=== PATIENT | male | born 1985 | race Hispanic/Latino ===

== ENCOUNTER 2019-02-06 19:20 | Inpatient (IN) | payer OTHER ==
[~2019-02-06] VITALS: Ht 188 cm; Wt 204.1 kg
--- OUTSIDE RECORDS SUMMARY | 2019-02-06 19:23 | XMS REPORT | Clinical Summary ---
Author Author [facility] Address Unknown Phone Unavailable Care Team Providers Care Research Aide Name Role Phone Asked, No Pcp PCP Unavailable Allergies No Known Allergies Medications Not on file Active Problems Not on file Social History Date Tobacco Use Types Packs/Day Years Used Never Smoker Alcohol Use Drinks/Week oz/Week Comments No Sex Assigned at Date Recorded Not on file Industry Job Start Date Occupation Not on file Not on file Not on file Travel End Travel History Travel Start No recent travel history available. Last Filed Vital Signs Not on file Plan of Treatment Not on file Results Not on fileafter 02/05/2018 Insurance Payer Benefit Subscriber ID Type Phone Address Plan / Group AETNA AETNA PPO xxxxxxxxxx PPO OPEN CHOICE (Home) [id number] Advance Directives Patient has advance care planning documents on file. For more information, keiry michael contact: Shahid Cooper [address] [place] [id number]
[2019-02-06] MEDS ORDERED: ACETAMINOPHEN 325 MG TAB PO ONE (20:15)
--- NOTE | 2019-02-06 20:19 | NUR ---
PT MEDICATED FOR FEVER PER MD ORDERS/PROTOCOL, TOLERATED WELL
[2019-02-06 20:23] LABS: BASOPHILS % 0.2 % (0.0-1.0); EOSINOPHILS # (AUTO) 0.1 (0.0-0.4); EOSINOPHILS % 0.4 % (0.0-6.0); HEMATOCRIT 40.8 % (38.2-49.6); LYMPHOCYTES # (AUTO) 1.7 (1.0-3.2); LYMPHOCYTES % 10.4 % (18.0-39.1); MEAN CORPUSCULAR HEMOGLOBIN 30.9 pg (28-32); MEAN CORPUSCULAR HGB CONC 34.3 g/dL (31-35); MEAN CORPUSCULAR VOLUME 90.1 fL (81-99); MONOCYTES % 6.2 % (4.4-11.3); NEUTROPHILS # (AUTO) 13.8 (2.1-6.9); NEUTROPHILS % 82.4 % (38.7-80.0); PLATELET COUNT 212 x10e3/uL (140-360); RED BLOOD COUNT 4.53 x10e6/uL (4.3-5.7); RED CELL DISTRIBUTION WIDTH 12.5 % (11.7-14.4)
[2019-02-06] MEDS: PIPER-TAZ 3.375 GM 50 ML IV SCH ×2 (20:36→22:00)
[2019-02-06 20:37] LABS: ALANINE AMINOTRANSFERASE 45 IU/L (0-55); ALBUMIN 3.3 g/dL (3.5-5.0); ALBUMIN/GLOBULIN RATIO 0.9 (0.8-2.0); ALKALINE PHOSPHATASE 71 IU/L (40-150); ANION GAP 9.9 mmol/L (8-16); BLOOD UREA NITROGEN 13 mg/dL (7-26); BUN/CREATININE RATIO 16 (6-25); CALCIUM 8.9 mg/dL (8.4-10.2); CARBON DIOXIDE 25 mmol/L (22-29); CHLORIDE 103 mmol/L (98-107); CREATININE, SERUM 0.83 mg/dL (0.72-1.25); EST GLOMERULAR FILTRATION RATE > 60 ML/MIN (60-); GLUCOSE 107 mg/dL (74-118); SODIUM 135 mmol/L (136-145)
[2019-02-06 20:38] LABS: POTASSIUM 2.9 mmol/L (3.5-5.1)
[2019-02-06] MEDS: VANCOMYCIN 1GM/NS 250 ML 250 ML IV SCH (20:38)
[2019-02-06] MEDS ORDERED: KCL 20MEQ/.9 SOD CHL 1,000 ML IV ONE (20:45)
[2019-02-06] MEDS ORDERED: POTASSIUM CHLORIDE 20 MEQ TAB CR PO NR (20:45)
[2019-02-06] MEDS ORDERED: ONDANSETRON HCL INJ 2MG/ML 2ML 2 MG/ML VIAL IV PRN (22:00)
[2019-02-06] MEDS ORDERED: SODIUM CHLORIDE FLUSH 10 ML SYR INJ PRN (22:00)
[2019-02-06] MEDS ORDERED: HYDROMORPHONE 1MG/1ML INJ IV PRN (22:00)
--- OUTSIDE RECORDS SUMMARY | 2019-02-06 22:03 | XMS REPORT | Clinical Summary ---
Author Author [facility] Address Unknown Phone Unavailable Care Team Providers Care Supervisor Type Bar And Segment Name Role Phone Asked, No Pcp PCP [...] AETNA PPO xxxxxxxxxx PPO OPEN CHOICE (Home) [place] [address] Advance Directives Patient has advance care planning documents on file. For more information, keiry michael contact: Shahid Cooper [address] [place] [id number]
--- NOTE | 2019-02-06 22:52 | NUR ---
CONSULT TO DR JULIETA FIELDS.
[2019-02-06] MEDS ORDERED: INFLUENZA VIRUS VAC SPLIT INJ 0.5 ML SYR IM SCH (22:55)
[2019-02-06 22:59] VITALS: BP 176/93
--- NOTE | 2019-02-06 22:59 | NUR ---
ADMISSION HX,FAMILY HX,AND ASSESSMENT DONE.PT REPORTS THAT HE DOES NOT TAKE ANY HOME MEDICATIONS.
--- NOTE | 2019-02-06 23:22 | NUR ---
PAGED AND NOTIFIED DR HARLEY ABOUT PT'S ELEVATED BLOOD PRESSURE.N/O RECEIVED AND ENTERED.
[2019-02-06] MEDS: CLONIDINE HCL 0.1 MG TAB PO PRN (23:46)
[2019-02-07] VITALS (9 sets, daily range): BP systolic 147–176; BP diastolic 73–93
[2019-02-07 05:11] LABS: BASOPHILS % 0.2 % (0.0-1.0); EOSINOPHILS # (AUTO) 0.1 (0.0-0.4); EOSINOPHILS % 0.6 % (0.0-6.0); HEMATOCRIT 37.3 % (38.2-49.6); HEMOGLOBIN 12.7 g/dL (14.0-18.0); LYMPHOCYTES # (AUTO) 1.7 (1.0-3.2); LYMPHOCYTES % 13.5 % (18.0-39.1); MEAN CORPUSCULAR HEMOGLOBIN 31.1 pg (28-32); MEAN CORPUSCULAR VOLUME 91.2 fL (81-99); MONOCYTES # (AUTO) 0.9 (0.2-0.8); MONOCYTES % 7.3 % (4.4-11.3); NEUTROPHILS # (AUTO) 9.5 (2.1-6.9); PLATELET COUNT 171 x10e3/uL (140-360); RED BLOOD COUNT 4.09 x10e6/uL (4.3-5.7); RED CELL DISTRIBUTION WIDTH 12.6 % (11.7-14.4)
[2019-02-07] MEDS: PIPER-TAZ 3.375 GM 50 ML IV SCH ×2 (05:15→12:44)
[2019-02-07 05:31] LABS: ALANINE AMINOTRANSFERASE 35 IU/L (0-55); ALBUMIN 2.8 g/dL (3.5-5.0); ALBUMIN/GLOBULIN RATIO 0.8 (0.8-2.0); ALKALINE PHOSPHATASE 60 IU/L (40-150); ANION GAP 9.3 mmol/L (8-16); BLOOD UREA NITROGEN 11 mg/dL (7-26); BUN/CREATININE RATIO 14 (6-25); CALCIUM 8.4 mg/dL (8.4-10.2); CARBON DIOXIDE 23 mmol/L (22-29); CHLORIDE 109 mmol/L (98-107); CREATININE, SERUM 0.78 mg/dL (0.72-1.25); EST GLOMERULAR FILTRATION RATE > 60 ML/MIN (60-); GLUCOSE 112 mg/dL (74-118); POTASSIUM 3.3 mmol/L (3.5-5.1); SODIUM 138 mmol/L (136-145)
--- NOTE | 2019-02-07 07:12 | NUR ---
REPORT GIVEN TO ONCOMING NURSE.WALKING ROUNDS MADE.PT RESTING IN BED WITH NO S/S OF DISTRESS.
[2019-02-07] MEDS ORDERED: SODIUM CHLORIDE 0.9% 250ML 250 ML ONE ×2 (07:19→20:53)
[2019-02-07] MEDS: VANCOMYCIN 1GM/NS 250 ML 250 ML IV SCH (07:54)
[2019-02-07] MEDS: ACETAMINOPHEN 325 MG TAB PO PRN ×3 (07:54→20:49)
[2019-02-07] MEDS ORDERED: POTASSIUM CHLORIDE 20 MEQ TAB CR PO ONE (08:15)
[2019-02-07] MEDS ORDERED: INFLUENZA VIRUS VAC SPLIT INJ 0.5 ML SYR IM SCH (08:15)
--- NOTE | 2019-02-07 17:24 | NUR ---
Nutrition Screen Note RD Recommendation for Physician: -Continue cardiac diet as ordered Plan of Care: RD following, monitoring for tolerance and adequacy Nutrition reason for involvement: Nutrition Risk Trigger MST Primary Diagnose(s): LLE cellulitis PMH: no H&P in chart Ht: 74in Wt: 450lb BMI: 57.8kg/m2 IBW: 190lb RD Assessment: (02/07) Chart reviewed. Labs and meds reviewed. 33yo obese M, who was admitted for LLE cellulitis. Pt was sleeping during my visit. Per RN, pt was eating very well with 100% meal intake. No GI complains noted. Will continue to monitor and follow. Current Diet: Cardiac diet Malnutrition Evaluation (02/07) Unable to evaluate, pt was sleeping. Diet Education Needs Assessment: Diet education not indicated. Nutrition Care Level: low Signed: Alyssa Ford, MS, RD, LD
[2019-02-07] MEDS ORDERED: VANCOMYCIN HCL 2 GM in SODIUM CHLORIDE 0.9% 500ML 400 ML IV SCH (18:45)
--- NOTE | 2019-02-07 18:55 | NUR ---
Resting in bed, side rails upx2, call light within reach. AAOX4 to time, person, place, situation. Respirations even and unlabored. Report to be given to oncoming nurse.
[2019-02-07] MEDS: VANCOMYCIN HCL 2 GM in SODIUM CHLORIDE 0.9% 500ML 400 ML IV SCH (20:49)
[2019-02-07] MEDS: CLINDAMYCIN 600MG / 50ML 50 ML IV SCH (21:36)
[2019-02-08] VITALS: BP 171/77
[2019-02-08] MEDS: CLONIDINE HCL 0.1 MG TAB PO PRN ×2 (00:49→18:01)
[2019-02-08] MEDS: ACETAMINOPHEN 325 MG TAB PO PRN ×2 (00:50→21:30)
--- NOTE | 2019-02-08 01:45 | Consultation ---
DATE OF CONSULTATION: REASON FOR CONSULTATION: Cellulitis of the left leg. HISTORY OF PRESENT ILLNESS: This patient who is a 33-year-old male, history of morbid obesity. The patient with history of cellulitis before, comes in with redness and swelling of his left leg. No specific trauma. The patient has since had this for the last 2 days. The patient was admitted and is on vancomycin and Zosyn. I was asked to see him. He is currently lying in bed comfortably. PAST MEDICAL HISTORY: Obesity. He also has cellulitis of the leg. PAST SURGICAL HISTORY: Denies. ALLERGIES: NKA. SOCIAL HISTORY: Does not smoke. No drug abuse or alcohol abuse. FAMILY HISTORY: Otherwise, unremarkable. REVIEW OF SYSTEMS: HEENT: There is no headache, visual changes, or hearing changes. GI: There is no nausea, no vomiting, no diarrhea. His review of systems is otherwise unremarkable. PHYSICAL EXAMINATION: GENERAL: He is alert and oriented, does not seem in acute distress. Morbidly obese. HEENT: Normocephalic. Not icteric. NECK: Supple. CHEST: Clear bilateral. HEART: S1, S2. No S3, S4, or murmurs. ABDOMEN: Soft. No tenderness. No hepatosplenomegaly. EXTREMITIES: Leg, there is erythema, there is edema noted from the foot all the way to above the knee. IMPRESSION: 1. Cellulitis. 2. This patient is morbidly obese. PLAN: I will suggest to discontinue Zosyn and discontinue vancomycin for now. Adjust his dose to vancomycin 2 g q.12 hours. Check trough with the third dose. We will follow up clinically. We will add clindamycin also for time being. We will follow with you. Thank you for asking me to see this patient. MD AAYUSH Graff/SUKHI /[id number]
[2019-02-08] MEDS: CLINDAMYCIN 600MG / 50ML 50 ML IV SCH ×3 (02:59→15:00)
[2019-02-08 04:00] VITALS: BP 139/75
[2019-02-08 05:41] LABS: HEMATOCRIT 36.4 % (38.2-49.6); HEMOGLOBIN 12.1 g/dL (14.0-18.0); MEAN CORPUSCULAR HEMOGLOBIN 30.4 pg (28-32); MEAN CORPUSCULAR HGB CONC 33.2 g/dL (31-35); MEAN CORPUSCULAR VOLUME 91.5 fL (81-99); PLATELET COUNT 173 x10e3/uL (140-360); RED BLOOD COUNT 3.98 x10e6/uL (4.3-5.7); RED CELL DISTRIBUTION WIDTH 12.5 % (11.7-14.4)
[2019-02-08 05:57] LABS: ANION GAP 9.3 mmol/L (8-16); BLOOD UREA NITROGEN 7 mg/dL (7-26); BUN/CREATININE RATIO 10 (6-25); CALCIUM 8.4 mg/dL (8.4-10.2); CARBON DIOXIDE 23 mmol/L (22-29); CHLORIDE 109 mmol/L (98-107); CREATININE, SERUM 0.73 mg/dL (0.72-1.25); EST GLOMERULAR FILTRATION RATE > 60 ML/MIN (60-); GLUCOSE 102 mg/dL (74-118); POTASSIUM 3.3 mmol/L (3.5-5.1); SODIUM 138 mmol/L (136-145)
--- NOTE | 2019-02-08 07:15 | NUR ---
pt alert resp even and unlabored at this time no distress noted, pt has no c/o pain when asked, pt able to make needs known pt has call light in reach, will cont to monitor
[2019-02-08 07:44] LABS: EOSINOPHILS % (MANUAL) 2 % (0-7); LYMPHOCYTES % (MANUAL) 33 % (19-48); MONOCYTES % (MANUAL) 4 % (3.4-9.0); NEUTROPHILS % (MANUAL) 61 % (40-74); PLATELET ESTIMATE ADEQUATE; PLATELET MORPHOLOGY COMMENT NORMAL; RBC MORPHOLOGY COMMENT NORMAL
[2019-02-08] MEDS: VANCOMYCIN HCL 2 GM in SODIUM CHLORIDE 0.9% 500ML 400 ML IV SCH ×2 (08:00→20:27)
[2019-02-08 08:17] VITALS: BP 163/90
[2019-02-08 11:47] VITALS: BP 156/80
[2019-02-08] MEDS ORDERED: TRAMADOL HCL 50 MG TAB PO PRN (13:45)
[2019-02-08] MEDS ORDERED: FUROSEMIDE 40 MG TAB PO ONE (14:00)
[2019-02-08] MEDS ORDERED: POTASSIUM CHLORIDE 20 MEQ TAB CR PO ONE (14:30)
[2019-02-08 16:19] VITALS: BP 176/91
--- NOTE | 2019-02-08 19:12 | NUR ---
report given to oncoming nurse, for cont. care.
[2019-02-08 20:00] VITALS: BP 160/91
[2019-02-08] MEDS: HYDROMORPHONE 2MG/ML 2 MG/ML ML IV PRN (21:17)
[2019-02-09] VITALS: BP 160/91
[2019-02-09] MEDS: CLINDAMYCIN 600MG / 50ML 50 ML IV SCH ×5 (00:28→20:56)
[2019-02-09 04:00] VITALS: BP 132/75
--- NOTE | 2019-02-09 07:16 | NUR ---
pt asleep resp even and unlabored at this time no distress noted, pt arousal to name, pt wearing bipap, call light in reach
[2019-02-09] MEDS: VANCOMYCIN HCL 2 GM in SODIUM CHLORIDE 0.9% 500ML 400 ML IV SCH ×2 (08:00→22:30)
[2019-02-09 08:02] VITALS: BP 147/68
[2019-02-09 11:46] VITALS: BP 173/97
[2019-02-09] MEDS: HYDROMORPHONE 2MG/ML 2 MG/ML ML IV PRN (12:06)
[2019-02-09 16:01] VITALS: BP 179/91
--- NOTE | 2019-02-09 19:18 | NUR ---
report given to oncoming nurse, for continued care.
--- NOTE | 2019-02-09 19:28 | Progress Note ---
DATE: SUBJECTIVE: Mr. Barcenas is doing better. There is no new complaint. The leg is slowly better. REVIEW OF SYSTEMS: HEENT: Negative. PULMONARY: Negative. CARDIAC: Negative. : Negative. SKIN: There is no rash. LABORATORY DATA: Reviewed. White count is 9.58, hemoglobin 12. Sodium 138, potassium 3.3, creatinine 0.73. PHYSICAL EXAMINATION: GENERAL: He is currently alert, oriented, does not seem to be in acute distress. Obese. VITAL SIGNS: Stable. Afebrile. HEENT: Not icteric. NECK: Supple. CHEST: Clear. HEART: S1, S2. No murmur. ABDOMEN: Soft, obese. No tenderness. No hepatosplenomegaly. EXTREMITIES: Legs, erythema seems to be subsided, still about the same from the toes all the way to the knee. IMPRESSION: Cellulitis. The patient is morbidly obese. The patient is doing better with cultures, IV antibiotic. If he continued to improve, probably we can discharge him home tomorrow. We will reassess on daily basis. MD AAYUSH Graff/SUKHI /[id number]
[2019-02-09 20:00] VITALS: BP 178/99
[2019-02-10] VITALS (9 sets, daily range): BP systolic 124–190; BP diastolic 69–100
[2019-02-10] MEDS: CLINDAMYCIN 600MG / 50ML 50 ML IV SCH ×4 (03:27→22:00)
--- NOTE | 2019-02-10 07:05 | NUR ---
RCD PT AT BED PT IS ALERT AND ORIENTED PT RESTING ON BED IV PATENT BED LOW AND LOCKED CALL LIGHT IN REACH
[2019-02-10] MEDS: VANCOMYCIN HCL 2 GM in SODIUM CHLORIDE 0.9% 500ML 400 ML IV SCH (08:00)
--- NOTE | 2019-02-10 09:39 | Progress Note ---
DATE: 02/10/2019 SUBJECTIVE: Mr. Barcenas is a 33-year-old male with a history of hypertension, sleep apnea, morbid obesity, came to the emergency room with fever, chills, left lower extremity edema and erythema. He was found to have cellulitis. White count was very elevated. He was admitted, started on IV antibiotics. Infectious Disease is following the patient with me. PHYSICAL EXAMINATION: GENERAL: Today, he is awake and alert, feeling a little better. VITAL SIGNS: Temperature is 98.9, blood pressure 164/100. HEART: Regular rate. LUNGS: Clear to auscultation. ABDOMEN: Soft. EXTREMITIES: Left lower extremity still has edema and erythema, but it looks better than before. LABORATORY WORK: On the blood work, potassium is 3.3, creatinine is 0.72, glucose 102. White count 9.58, hemoglobin 12.1, hematocrit 36.4. ASSESSMENT: 1. Left lower extremity cellulitis. 2. Leukocytosis, improving. 3. Morbid obesity. 4. Uncontrolled hypertension. 5. Sleep apnea. 6. Hypokalemia. PLAN: At present time is to continue IV antibiotics. White count is back to normal. He has been afebrile. If stable, he may be able to go home tomorrow on p.o. antibiotics. All this was discussed with the patient. All questions were answered to satisfaction. MD JEFFERY Patricia/SUKHI /[id number]
--- NOTE | 2019-02-10 10:35 | Progress Note ---
DATE: SUBJECTIVE: Mr. Barcenas is doing better. No new complaints. The left leg is better and there is still erythema and edema. PHYSICAL EXAMINATION: GENERAL: He is currently alert and oriented, does not seem in acute distress. VITAL SIGNS: Stable, currently afebrile. HEENT: He is not icteric. NECK: Supple. CHEST: Clear. HEART: S1, S2. No S3, S4, or murmur. ABDOMEN: Soft, obese. The left leg, there is erythema and edema, but have subsided. REVIEW OF SYSTEMS: HEENT: Negative. PULMONARY: Negative. CARDIAC: Negative. : Negative. SKIN: There is no other rash. JOINTS: Negative. LABORATORY DATA: Reviewed. IMPRESSION: Cellulitis of the left leg in a patient who is morbidly obese, slowly better on clindamycin and vancomycin. Continue with the same. Check vancomycin trough. Recheck CBC. We will follow. MD AAYUSH Graff/SUKHI /[id number]
--- NOTE | 2019-02-10 12:00 | NUR ---
PAGED TO DR HARLEY TO NOTIFY THE BP
[2019-02-10] MEDS: CLONIDINE HCL 0.1 MG TAB PO PRN ×2 (13:10→21:21)
--- NOTE | 2019-02-10 14:31 | NUR ---
CASE MANAGEMENT ASSESSMENT Pouncer to bedside to discuss plan of care with patient/family. CM/SW role and care transitions discussed. Anticipated discharge plan discussed along with duration of care. CM/SW discussed patients right to make decisions in care. CM/SW work hours given. Patient lives: with some roommates Admit/Transfer: thru ED Hospital/ER visits since last admit: stated was hospitalized at [facility] last year for same POA/Emergency contact: nelida Barcenas [phone] Current/Previous Home Health: none PCP/Follow-up Care: Dr. Cuco Chavez; CM advised pt to follow up with his MD within 5 days of discharge. Pt verbalized understanding and will set up an appointment Current/Previous DME: [employer] Medications (referring to index hospitalization or the first time you were in the hospital) a. Were changes made in your medications when you were in the hospital on [date of index hospitalization]? b. Did you understand the changes? c. Were you able to obtain your new medications right away? d. Were you able to take your medications like the doctor wanted you to? e. Did the hospital give you an accurate, easy to understand list of medications when you left? Scale of 1-10 how comfortable does patient feel with disease management in outpatient settin Other Services: none Employment Status: employed at [employer] Areas of Concerns: cellulitis Referral Needs: none Education Needs: cellulitis, medical management IMM/RODAS given and signed (if applicable): n/a Goal for discharge: home with no needs; possibly tomorrow CM/SW left business card at the bedside with contact information. Name and number was also written on the patients whiteboard. Patient verbalized understanding of discussion. CM will follow-up with ongoing discharge and transition of care needs.
--- NOTE | 2019-02-10 18:40 | NUR ---
PT RESTING ON BED BED SIDE REPORT GIVEN TO ONCOMING NURSE
[2019-02-10] MEDS: VANCOMYCIN HCL 2 GM in SODIUM CHLORIDE 0.9% 500ML 500 ML IV SCH (20:05)
[2019-02-11 00:40] VITALS: BP 162/100
[2019-02-11] MEDS: CLINDAMYCIN 600MG / 50ML 50 ML IV SCH ×3 (03:43→15:00)
[2019-02-11] MEDS ORDERED: SODIUM CHLORIDE 0.9% 250ML 250 ML ONE (04:40)
[2019-02-11 04:48] VITALS: BP 162/92
[2019-02-11] MEDS: CLONIDINE HCL 0.1 MG TAB PO PRN (05:38)
--- NOTE | 2019-02-11 07:02 | NUR ---
REPORT GIVEN TO ONCOMING NURSE.WALKING ROUNDS MADE.PT RESTING IN BED WITH NO S/S OF DISTRESS.
[2019-02-11 07:50] VITALS: BP 162/92
[2019-02-11] MEDS: VANCOMYCIN HCL 2 GM in SODIUM CHLORIDE 0.9% 500ML 500 ML IV SCH (08:00)
[2019-02-11 08:38] VITALS: BP 150/91
[2019-02-11] MEDS ORDERED: HYDROCHLOROTHIAZIDE 25 MG TAB PO SCH (09:00)
[2019-02-11] MEDS ORDERED: LOSARTAN POTASSIUM 25 MG TAB PO SCH (09:00)
[2019-02-11 11:57] VITALS: BP 153/82
--- NOTE | 2019-02-11 13:07 | NUR ---
A/C TO DR RENDON PT CAN GO HOME SO PAGED DR HARLEY TO GET DISCHARGE ORDER
[2019-02-11] MEDS ORDERED: LOSARTAN HCT PO (13:19)
[2019-02-11] MEDS ORDERED: DOXYCYCLINE HY100 MG PO (13:20)
--- NOTE | 2019-02-11 14:38 | NUR ---
AGAIN PAGED DR HARLEY TO GET DISCHARGE ORDER
--- NOTE | 2019-02-11 16:18 | NUR ---
PT WENT HOME IN SAFE CONDITION WITH HIS BROTHER
[2019-02-11 16:47] VITALS: BP 158/83
--- NOTE | 2019-02-12 06:00 | Discharge Summary ---
HISTORY OF PRESENT ILLNESS: Mr. Barcenas is a 33-year-old man with history of hypertension, sleep apnea, and morbid obesity, came to the emergency room complaining of chills, fever, left lower extremity edema and erythema. He was found to have cellulitis. He was started on IV antibiotics. PHYSICAL EXAMINATION: GENERAL: Today, he is awake and alert. Feeling better. VITAL SIGNS: Temperature 97.5, blood pressure 162/92. HEART: Regular rate. LUNGS: Clear to auscultation. ABDOMEN: Soft. EXTREMITIES: The left lower extremity still with some skin color chronic, still a little erythema. LAB WORK: White count is 9.58, hemoglobin 12.1, and hematocrit 36.4. Potassium 3.3, creatinine is 0.72, and glucose is 102. DISCHARGE DIAGNOSES: 1. Left lower extremity cellulitis. 2. Leukocytosis, resolved. 3. Morbid obesity. 4. Uncontrolled hypertension. 5. Sleep apnea. 6. Hypokalemia. PLAN: At the present time is to start the patient on losartan-HCTZ 50-12.5, to continue. If we can switch him to p.o. antibiotics, he will be able to be to go home today and follow up with me as an outpatient. All this was discussed with the patient. All questions were answered to satisfaction. We will discuss with Infectious Disease about switching him to p.o. antibiotics. MD JEFFERY Patricia/SUKHI /[id number]
== END 2019-02-11 16:18 | disposition home or self-care (01) | DRG 872 ==
LOC: ER 19:20 → ERHOLD 22:01 → MED/SURG2 22:35
PROVIDERS: ADMIT Internal Medicine; ATTEND Internal Medicine
DX: A41.9 Sepsis, unspecified organism (principal); L03.116 Cellulitis of left lower limb; Z68.43 Body mass index [BMI] 50.0-59.9, adult; G47.30 Sleep apnea, unspecified; E87.6 Hypokalemia
CPT/HCPCS: 36415; 80048; 80053; 80202; 85007; 85025; 85027; 87040; 93971; 99284; J2543; J3370; J7040; J7050

== ENCOUNTER 2020-02-12 16:01 | Inpatient (IN) | payer BC, OTHER ==
[~2020-02-12] VITALS: Ht 188 cm; Wt 213.8 kg
[~2020-02-12 16:01] MED LIST: DOXYCYCLINE HY100 MG PO; LOSARTAN HCT PO
--- OUTSIDE RECORDS SUMMARY | 2020-02-12 16:05 | XMS REPORT ---
Author Author [facility] Address Unknown Phone Unavailable Care Team Providers Care Dialysis Biomed Technician Name Role Phone Unavailable Unavailable Problems This patient has no known problems. Allergies, Adverse Reactions, Alerts This patient has no known allergies or adverse reactions. Medications This patient has no known medications. Encounters Start Date/Time End Date/Time Encounter Type Admission Type Attending Clinicians Care Facility Care Department Encounter ID 2019-07-26 01:25:00 2019-07-26 01:25:00 Emergency E [facility] [id number] 2019-04-24 11:44:00 2019-04-24 11:44:00 Emergency E [facility] [id number]
--- OUTSIDE RECORDS SUMMARY | 2020-02-12 16:05 | XMS REPORT | Summary of Care ---
Author Author GEORGIA STANLEY M.D. Organization Unknown Address [facility] Phone Unavailable Care Team Providers Care Diesel Powerplant Mechanic Helper Name Role Phone GEORGIA STANLEY M.D. 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.6, L03.119) Status: Active Hypertension (401.9, I10) Status: Active Obesity, morbid (278.01, E66.01) Status: Active Medications Name Dates Details Medications not documented Allergies and Adverse Reactions Name Dates Details Allergy history not documented Status: Procedures Procedure Dates Details History of No history of surgery Completed Immunization Name Dates Details Immunizations not documented Social History Name Dates Details Unknown if ever smoked Vital Signs Date Test Result Details [id number] BP Systolic 148 mm[Hg] Status: Comments: Location: RUE; Position: Sitting BP Diastolic 99 mm[Hg] Status: Comments: Location: E; Position: Sitting Height 74 in Status: O2 SAT 100 % Status: Comments: Source: RA Heart Rate 78 /min Status: Respiration Rate 18 /min Status: 87-[id number]:48 BP Systolic 184 mm[Hg] Status: BP Diastolic 124 mm[Hg] Status: Height 74 in Status: Heart Rate 82 /min Status: Weight 450 lb Status: Body Mass Index Calculated 57.78 kg/m2 Status: Body Surface Area Calculated 3.07 m2 Status: Results Date Description Value Details [id number] [QLH] CBC (INCLUDES DIFF/PLT) WBC 5.8 {K/CMM} Range: 3.7-10.4 RBC 4.63 {M/CMM} (Below low threshold) Range: 4.70-6.10 Hgb 14.5 g/dl Range: 14.0-18.0 Hct 41.9 % (Below low threshold) Range: 42.0-54.0 MCV 90.5 fL Range: 80.0-94.0 MCH 31.3 pg (Above high threshold) Range: 27.0-31.0 MCHC 34.6 g/dl Range: 32.0-36.0 RDW 13.1 % Range: 11.5-14.5 Platelet 287 {K/CMM} Range: 133-450 Mean Platelet Volume 9.3 fL Range: 7.4-10.4 :37 [[facility]] Differential Segmented Neutrophils 56.2 % Range: 45.0-75.0 Monocytes 6.2 % Range: 2.0-12.0 Lymphocytes 35.4 % Range: 20.0-40.0 Eosinophils 1.7 % Range: 0.0-4.0 Basophils 0.5 % Range: 0.0-1.0 Segs-Bands # 3.3 {K/CMM} Range: 1.5-8.1 Lymphocytes # 2.1 {K/CMM} Range: 1.0-5.5 Monocytes # 0.4 {K/CMM} Range: 0.0-0.8 Eosinophils # 0.1 {K/CMM} Range: 0.0-0.5 :37 [QL] CMP W/EGFR Sodium Level 143 {mEq/l} Range: 135-145 Potassium Level 3.8 {mEq/l} Range: 3.5-5.1 Chloride Level 109 {mEq/l} Range: 95-109 Carbon Dioxide 26 {mEq/l} Range: 24-32 AGAP 11.8 {mEq/l} Range: 10.0-20.0 Glucose Lvl 111 mg/dl (Above high threshold) Range: 70-99 Comments: Adult reference range values reflect the clinical guidelinesof the [place] Diabetes Association. Creatinine Lvl 0.80 mg/dl Range: 0.50-1.40 Blood Urea Nitrogen 9 mg/dl Range: 7-22 BUN/Creatinine Ratio 11 Range: 6-25 Total Protein 7.3 g/dl Range: 6.4-8.4 Albumin Lvl 3.6 g/dl Range: 3.5-5.0 Globulin 3.7 g/dl Range: 2.7-4.2 A/G Ratio 1.0 Range: 0.7-1.6 Calcium Level Total 9.1 mg/dl Range: 8.5-10.5 ALT 66 u/l (Above high threshold) Range: 0-65 AST 32 u/l Range: 0-37 Alk Phos 93 u/l Range: 39-136 Bili Total 0.7 mg/dl Range: 0.2-1.3 eGFR 119 {ML/MIN/1.7} Comments: The eGFR is calculated using the CKD-EPI formula. In most young, healthyindividuals the eGFR will be >90 mL/min/1.73m2. The eGFR declines with age. AneGFR of 60-89 may be normal in some populations, particularly the elderly, forwhom the CKD-EPI formula has not been extensively validated. Use of the eGFR isnot recommended in the following populations:Individuals with unstable creatinine concentrations, including patients and those with serious co-morbid conditions.Patients with extremes in muscle mass or diet.The data above are obtained from the National Kidney Disease Education Program(NKDEP) which additionally recommends that when the eGFR is used in patientswith extremes of body mass index for purposes of drug dosing, the eGFR shouldbe multiplied by the estimated BMI. Plan of Care Name Dates Details Planned Observations Planned Goals not documented Interventions Provided Plan* - No need for further therapy with systemic antibiotics. * - To reduce the risk of recurence, it was recommended that the patient start anti fungal cream on his left foot. * - FUP as needed. Instructions Name Dates Details Instructions not documented Encounters Appointment; GEORGIA STANLEY M.D. Encounter Diagnosis: Problem not documented On: 29-Apr-2019 9:00 Appointment; GEORGIA STANLEY M.D. Encounter Diagnosis: Problem not documented On: 06-May-2019 10:00
[2020-02-12] MEDS ORDERED: SODIUM CHLORIDE 0.9% 1000ML 1,000 ML IV STA (16:22)
[2020-02-12] MEDS ORDERED: PIPER-TAZ 3.375 GM 50 ML IV ONE (16:30)
[2020-02-12 16:58] LABS: BASOPHILS % 0.1 % (0.0-1.0); EOSINOPHILS % 0.2 % (0.0-6.0); HEMATOCRIT 43.3 % (38.2-49.6); HEMOGLOBIN 15.1 g/dL (14.0-18.0); LYMPHOCYTES % 13.6 % (18.0-39.1); MEAN CORPUSCULAR HEMOGLOBIN 31.1 pg (28-32); MEAN CORPUSCULAR HGB CONC 34.9 g/dL (31-35); MEAN CORPUSCULAR VOLUME 89.1 fL (81-99); MONOCYTES # (AUTO) 0.7 (0.2-0.8); MONOCYTES % 4.5 % (4.4-11.3); NEUTROPHILS # (AUTO) 12.1 (2.1-6.9); NEUTROPHILS % 81.2 % (38.7-80.0); PLATELET COUNT 276 x10e3/uL (140-360); RED BLOOD COUNT 4.86 x10e6/uL (4.3-5.7); RED CELL DISTRIBUTION WIDTH 12.1 % (11.7-14.4)
[2020-02-12 17:09] LABS: INR 1.02; PARTIAL THROMBOPLASTIN TIME 34.1 seconds (23.8-35.5)
[2020-02-12 17:10] LABS: CLARITY,URINE CLEAR (CLEAR); COLOR,URINE YELLOW (YELLOW); KETONES,URINE TRACE (NEGATIVE); LEUKOCYTE ESTERASE ,URINE NEGATIVE (NEGATIVE); NITRITE,URINE NEGATIVE (NEGATIVE); PROTEIN,URINE DIPSTICK 1+ (NEGATIVE)
[2020-02-12 17:11] LABS: BILIRUBIN,URINE NEGATIVE (NEGATIVE); URINE UROBILINOGEN 0.2 mg/dL (0.2 - 1)
[2020-02-12] MEDS ORDERED: VANCOMYCIN 1GM/NS 250 ML 250 ML IV ONE (17:15)
[2020-02-12 17:16] LABS: ALANINE AMINOTRANSFERASE 70 IU/L (0-55); ALBUMIN 3.7 g/dL (3.5-5.0); ALBUMIN/GLOBULIN RATIO 1.2 (0.8-2.0); ALKALINE PHOSPHATASE 95 IU/L (40-150); ANION GAP 11.2 mmol/L (8-16); BLOOD UREA NITROGEN 11 mg/dL (7-26); BUN/CREATININE RATIO 11 (6-25); CALCIUM 8.8 mg/dL (8.4-10.2); CARBON DIOXIDE 25 mmol/L (22-29); CHLORIDE 108 mmol/L (98-107); CREATINE KINASE 152 IU/L (30-200); CREATININE, SERUM 1.01 mg/dL (0.72-1.25); EST GLOMERULAR FILTRATION RATE > 60 ML/MIN (60-); GLUCOSE 133 mg/dL (74-118); POTASSIUM 3.2 mmol/L (3.5-5.1); SODIUM 141 mmol/L (136-145)
[2020-02-12 17:21] LABS: BACTERIA,URINE RARE /HPF; EPITHELIAL CELLS,URINE FEW /LPF; RBC,URINE 0-5 /HPF (0-5)
[2020-02-12] MEDS ORDERED: POTASSIUM CHLORIDE 20 MEQ TAB CR PO STA (17:26)
[2020-02-12] MEDS ORDERED: ONDANSETRON HCL INJ 2MG/ML 2ML 2 MG/ML VIAL IV STA (17:26)
[2020-02-12] MEDS ORDERED: HYDROCODONE/APAP 10MG-325MG TAB PO ONE (17:30)
[2020-02-12] MEDS ORDERED: CLONIDINE HCL 0.1 MG TAB PO ONE (17:30)
[2020-02-12] MEDS ORDERED: KCL 20MEQ/.9 SOD CHL 1,000 ML IV ONE (18:30)
[2020-02-12] MEDS ORDERED: CLONIDINE HCL 0.1 MG TAB PO PRN (18:30)
[2020-02-12] MEDS ORDERED: ONDANSETRON HCL INJ 2MG/ML 2ML 2 MG/ML VIAL IV PRN (18:30)
--- NOTE | 2020-02-12 19:09 | Diagnostic Imaging Report ---
EXAMINATION: CHEST SINGLE (PORTABLE) INDICATION: ^OBESE, SOB ^[id number] ^[id number]. COMPARISON: None FINDINGS: AP view TUBES and LINES: None. LUNGS: Lungs are not well inflated. Left basilar opacities likely atelectasis and or pleural effusion. PLEURA: No pleural effusion or pneumothorax. HEART AND MEDIASTINUM: Cardiac size is mildly enlarged. BONES AND SOFT TISSUES: No acute osseous lesion. Soft tissues are unremarkable. UPPER ABDOMEN: No free air under the diaphragm. IMPRESSION: Left basilar opacities likely atelectasis and or pleural effusion. Signed by: Jerrod Wright MD on 02/12/2020 7:05 PM
[2020-02-12] MEDS ORDERED: METOPROLOL TARTRATE INJ 1 MG/ML VIAL IV ONE (19:15)
[2020-02-12 21:17] VITALS: BP 178/94
[2020-02-12 21:37] VITALS: BP 178/94
[2020-02-12] MEDS: PIPER-TAZ 3.375 GM 50 ML IV SCH (23:13)
[2020-02-13] VITALS (8 sets, daily range): BP systolic 134–174; BP diastolic 79–98
[2020-02-13] MEDS: VANCOMYCIN 1GM/NS 250 ML 250 ML IV SCH ×2 (04:38→17:45)
[2020-02-13] MEDS: HYDROCODONE/APAP 10MG-325MG TAB PO PRN (05:48)
[2020-02-13] MEDS: PIPER-TAZ 3.375 GM 50 ML IV SCH ×4 (06:15→23:34)
[2020-02-13] MEDS ORDERED: HYDRALAZINE HCL 20 MG/ML VIAL IV PRN (06:30)
[2020-02-13 07:53] LABS: BASOPHILS % 0.1 % (0.0-1.0); EOSINOPHILS % 0.2 % (0.0-6.0); HEMATOCRIT 38.1 % (38.2-49.6); LYMPHOCYTES # (AUTO) 2.4 (1.0-3.2); LYMPHOCYTES % 16.6 % (18.0-39.1); MEAN CORPUSCULAR HEMOGLOBIN 31.3 pg (28-32); MEAN CORPUSCULAR HGB CONC 34.1 g/dL (31-35); MEAN CORPUSCULAR VOLUME 91.6 fL (81-99); MONOCYTES # (AUTO) 1.1 (0.2-0.8); MONOCYTES % 7.8 % (4.4-11.3); NEUTROPHILS # (AUTO) 10.6 (2.1-6.9); NEUTROPHILS % 74.8 % (38.7-80.0); PLATELET COUNT 230 x10e3/uL (140-360); RED BLOOD COUNT 4.16 x10e6/uL (4.3-5.7); RED CELL DISTRIBUTION WIDTH 12.3 % (11.7-14.4)
[2020-02-13 08:26] LABS: ALANINE AMINOTRANSFERASE 51 IU/L (0-55); ALBUMIN 3.2 g/dL (3.5-5.0); ALBUMIN/GLOBULIN RATIO 1.1 (0.8-2.0); ALKALINE PHOSPHATASE 68 IU/L (40-150); ANION GAP 8.1 mmol/L (8-16); BLOOD UREA NITROGEN 9 mg/dL (7-26); BUN/CREATININE RATIO 12 (6-25); CALCIUM 7.9 mg/dL (8.4-10.2); CARBON DIOXIDE 23 mmol/L (22-29); CHLORIDE 107 mmol/L (98-107); CREATININE, SERUM 0.74 mg/dL (0.72-1.25); EST GLOMERULAR FILTRATION RATE > 60 ML/MIN (60-); GLUCOSE 114 mg/dL (74-118); POTASSIUM 3.1 mmol/L (3.5-5.1); SODIUM 135 mmol/L (136-145)
[2020-02-13] MEDS: ACETAMINOPHEN 325 MG TAB PO PRN ×2 (08:45→20:44)
[2020-02-13 08:58] LABS: CREATINE KINASE MB 0.9 ng/mL (0-5.0)
[2020-02-13] MEDS: LISINOPRIL 10 MG TAB PO SCH (09:12)
[2020-02-13] MEDS: DOCUSATE SODIUM 100 MG CAP PO SCH ×2 (09:12→17:03)
[2020-02-13] MEDS ORDERED: POTASSIUM CHLORIDE 20 MEQ TAB CR PO ONE (11:35)
[2020-02-13] MEDS: KCL 20MEQ/.9 SOD CHL 1,000 ML IV SCH ×2 (11:52→23:35)
[2020-02-13] MEDS: ENOXAPARIN SOD INJ 40 MG/0.4 ML SYR SC SCH (17:03)
[2020-02-13 17:19] LABS: CREATINE KINASE MB 0.8 ng/mL (0-5.0)
[2020-02-14] VITALS (8 sets, daily range): BP systolic 116–164; BP diastolic 56–96
[2020-02-14] MEDS: PIPER-TAZ 3.375 GM 50 ML IV SCH ×3 (05:30→17:18)
[2020-02-14 06:09] LABS: BASOPHILS % 0.2 % (0.0-1.0); EOSINOPHILS # (AUTO) 0.1 (0.0-0.4); EOSINOPHILS % 0.4 % (0.0-6.0); HEMATOCRIT 40.6 % (38.2-49.6); HEMOGLOBIN 13.3 g/dL (14.0-18.0); LYMPHOCYTES # (AUTO) 1.8 (1.0-3.2); LYMPHOCYTES % 14.8 % (18.0-39.1); MEAN CORPUSCULAR HEMOGLOBIN 30.9 pg (28-32); MEAN CORPUSCULAR HGB CONC 32.8 g/dL (31-35); MEAN CORPUSCULAR VOLUME 94.2 fL (81-99); MONOCYTES # (AUTO) 0.9 (0.2-0.8); MONOCYTES % 7.8 % (4.4-11.3); NEUTROPHILS # (AUTO) 9.2 (2.1-6.9); NEUTROPHILS % 76.3 % (38.7-80.0); PLATELET COUNT 182 x10e3/uL (140-360); RED BLOOD COUNT 4.31 x10e6/uL (4.3-5.7)
[2020-02-14] MEDS: VANCOMYCIN 1GM/NS 250 ML 250 ML IV SCH (06:41)
[2020-02-14 06:50] LABS: ANION GAP 9.3 mmol/L (8-16); BLOOD UREA NITROGEN 8 mg/dL (7-26); BUN/CREATININE RATIO 10 (6-25); CALCIUM 8.4 mg/dL (8.4-10.2); CARBON DIOXIDE 24 mmol/L (22-29); CHLORIDE 108 mmol/L (98-107); CHOL/HDL RATIO 2.8 (3.9-4.7); CHOLESTEROL 111 MD/DL (0-199); CREATININE, SERUM 0.79 mg/dL (0.72-1.25); EST GLOMERULAR FILTRATION RATE > 60 ML/MIN (60-); GLUCOSE 102 mg/dL (74-118); HDL CHOLESTEROL 39 MG/DL (40-60); LDL CHOLESTEROL 61 MG/DL (60-130); MAGNESIUM 1.7 MG/DL (1.3-2.1); PHOSPHORUS 1.9 MG/DL (2.3-4.7); POTASSIUM 3.3 mmol/L (3.5-5.1); SODIUM 138 mmol/L (136-145); TRIGLYCERIDES 56 MG/DL (0-149)
[2020-02-14 07:12] LABS: THYROID STIMULATING HORMONE 0.913 uIU/mL (0.350-4.940)
[2020-02-14] MEDS: ACETAMINOPHEN 325 MG TAB PO PRN (07:25)
[2020-02-14] MEDS: LOSARTAN POTASSIUM 100 MG TAB PO SCH (09:06)
[2020-02-14] MEDS: DOCUSATE SODIUM 100 MG CAP PO SCH ×2 (09:06→17:15)
[2020-02-14] MEDS: LISINOPRIL 10 MG TAB PO SCH (09:07)
[2020-02-14] MEDS ORDERED: LORAZEPAM 0.5 MG TAB PO PRN (12:30)
[2020-02-14] MEDS ORDERED: POTASSIUM CHLORIDE 20 MEQ TAB CR PO NR ×2 (12:30→15:00)
[2020-02-14] MEDS ORDERED: FUROSEMIDE INJ 10 MG/ML 4 ML VIAL IV NR (12:45)
[2020-02-14] MEDS: HYDROCODONE/APAP 10MG-325MG TAB PO PRN (15:30)
[2020-02-14] MEDS: KCL 20MEQ/.9 SOD CHL 1,000 ML IV SCH (16:45)
[2020-02-14] MEDS: ENOXAPARIN SOD INJ 40 MG/0.4 ML SYR SC SCH (17:15)
[2020-02-14] MEDS ORDERED: VANCOMYCIN 1GM/NS 250 ML 250 ML IV SCH (17:45)
[2020-02-14] MEDS: VANCOMYCIN HCL 1.5 GM in SODIUM CHLORIDE 0.9% 250ML 300 ML IV SCH (18:00)
[2020-02-14] MEDS: GUAIFENESIN/DEXTROMETHORPHAN LIQD 5 ML UDC NG PRN (22:00)
[2020-02-15] VITALS (8 sets, daily range): BP systolic 131–174; BP diastolic 67–98
[2020-02-15] MEDS: PIPER-TAZ 3.375 GM 50 ML IV SCH ×5 (00:16→23:10)
--- NOTE | 2020-02-15 00:52 | Diagnostic Imaging Report ---
EXAMINATION: CHEST SINGLE (PORTABLE) COMPARISON: Chest x-ray 02/12/2020 INDICATION: ^COUGH ^[id number] ^[id number] DISCUSSION: Frontal view of the chest obtained at 0012 hours. HEART AND MEDIASTINUM: Stable cardiomegaly. Increasing vascular congestion. LINES: None. LUNGS: Bibasilar airspace opacities are new suggestive atelectasis or infiltrate. No interstitial edema. PLEURA: No pleural effusion or pneumothorax. BONES AND SOFT TISSUES: No focal osseous lesion. The soft tissues are normal. IMPRESSION: Cardiomegaly and increasing vascular congestion. New bibasilar airspace opacities, either atelectasis or pneumonia. Signed by: Dr. Sarah Tam MD on 02/15/2020 12:49 AM
[2020-02-15] MEDS: ACETAMINOPHEN 325 MG TAB PO PRN ×2 (01:05→16:00)
[2020-02-15] MEDS: KCL 20MEQ/.9 SOD CHL 1,000 ML IV SCH (05:42)
[2020-02-15 05:51] LABS: BASOPHILS % 0.2 % (0.0-1.0); EOSINOPHILS % 0.3 % (0.0-6.0); HEMATOCRIT 39.7 % (38.2-49.6); HEMOGLOBIN 13.1 g/dL (14.0-18.0); LYMPHOCYTES % 18.3 % (18.0-39.1); MEAN CORPUSCULAR HEMOGLOBIN 30.3 pg (28-32); MEAN CORPUSCULAR VOLUME 91.7 fL (81-99); MONOCYTES # (AUTO) 0.7 (0.2-0.8); MONOCYTES % 6.3 % (4.4-11.3); NEUTROPHILS # (AUTO) 7.9 (2.1-6.9); NEUTROPHILS % 74.4 % (38.7-80.0); PLATELET COUNT 242 x10e3/uL (140-360); RED BLOOD COUNT 4.33 x10e6/uL (4.3-5.7); RED CELL DISTRIBUTION WIDTH 11.9 % (11.7-14.4)
[2020-02-15 06:03] LABS: ALANINE AMINOTRANSFERASE 48 IU/L (0-55); ALBUMIN/GLOBULIN RATIO 0.8 (0.8-2.0); ALKALINE PHOSPHATASE 69 IU/L (40-150); ANION GAP 11.3 mmol/L (8-16); BLOOD UREA NITROGEN 7 mg/dL (7-26); BUN/CREATININE RATIO 9 (6-25); CALCIUM 8.6 mg/dL (8.4-10.2); CARBON DIOXIDE 22 mmol/L (22-29); CHLORIDE 108 mmol/L (98-107); CREATININE, SERUM 0.78 mg/dL (0.72-1.25); EST GLOMERULAR FILTRATION RATE > 60 ML/MIN (60-); GLUCOSE 109 mg/dL (74-118); MAGNESIUM 1.7 MG/DL (1.3-2.1); POTASSIUM 3.3 mmol/L (3.5-5.1); SODIUM 138 mmol/L (136-145)
[2020-02-15] MEDS: VANCOMYCIN HCL 1.5 GM in SODIUM CHLORIDE 0.9% 250ML 300 ML IV SCH ×2 (07:05→16:30)
[2020-02-15] MEDS: LOSARTAN POTASSIUM 100 MG TAB PO SCH (09:10)
[2020-02-15] MEDS: LISINOPRIL 10 MG TAB PO SCH (09:10)
[2020-02-15] MEDS: DOCUSATE SODIUM 100 MG CAP PO SCH ×2 (09:10→17:08)
[2020-02-15] MEDS: GUAIFENESIN/DEXTROMETHORPHAN LIQD 5 ML UDC NG PRN ×3 (09:17→22:11)
[2020-02-15] MEDS ORDERED: POTASSIUM CHLORIDE 20 MEQ TAB CR PO NR (11:45)
--- NOTE | 2020-02-15 15:12 | Diagnostic Imaging Report ---
EXAM: CT Chest WITHOUT contrast INDICATION: ^r/o PNA ^[id number] ^[id number] COMPARISON: Same day chest x-ray TECHNIQUE: Chest was scanned utilizing a multidetector helical scanner from the lung apex through the level of the adrenal glands without administration of IV contrast. Absence of intravenous contrast decreases sensitivity for detection of lymphadenopathy and vascular pathology. Coronal and sagittal reformations were obtained. Routine protocol was performed. IV CONTRAST: None COMPLICATIONS: None RADIATION DOSE: Total DLP: 920.92 mGy*cm Estimated effective dose: (DLP x 0.014 x size factor) mSv CTDIvol has been reviewed. It is below the limits set by the Radiation Protocol Committee (RPC). FINDINGS: LINES/ TUBES: None. LUNGS AND AIRWAYS: Multifocal bilateral groundglass and patchy airspace opacities, most severe in the lower lobes. Airways are normal. PLEURA: The pleural spaces are clear. HEART AND MEDIASTINUM: The visualized thyroid gland is normal. Subcentimeter right paratracheal lymph nodes, could be reactive. Otherwise, no mediastinal or axillary lymphadenopathy. The heart is normal in size.. There is no pericardial effusion. UPPER ABDOMEN: Hepatic steatosis. BONES: The visualized bony thorax is within normal limits. SOFT TISSUES: Unremarkable. IMPRESSION: Multifocal diffuse bilateral groundglass and patchy airspace opacities, representing multifocal pneumonia. Signed by: Dr. Albaro Deal MD on 02/15/2020 3:09 PM
[2020-02-15] MEDS: ENOXAPARIN SOD INJ 40 MG/0.4 ML SYR SC SCH (17:08)
--- NOTE | 2020-02-15 17:40 | Consultation ---
DATE OF CONSULTATION: REASON FOR CONSULTATION: Cellulitis of the leg. HISTORY OF PRESENT ILLNESS: This patient who is a 34-year-old male, morbidly obese patient, comes in with redness and swelling of his left leg. He also had fever and chills. He was started on vancomycin and Zosyn with improvement. He did have fever. He had some cough yesterday, but today he is lying in bed comfortably. He was concerned and I was asked to see him. The patient with no other complaints at present time as mentioned above. PAST MEDICAL HISTORY: Morbidly obese patient, cellulitis before. PAST SURGICAL HISTORY: Denies. ALLERGIES: NKA. SOCIAL HISTORY: There is no smoking, drug abuse, or alcohol abuse. FAMILY HISTORY: Otherwise unremarkable. REVIEW OF SYSTEMS: Fever. PHYSICAL EXAMINATION: GENERAL: He is currently alert, oriented. VITAL SIGNS: Stable, currently afebrile. Morbidly obese. HEENT: He is not pale or icteric. NECK: Supple. No JVD. No lymphadenopathy. No thyromegaly. EXTREMITIES: There is erythema. There is edema. There is still some redness, swelling of the leg. IMPRESSION: 1. Cellulitis of the leg. The patient is morbidly obese patient, currently on vancomycin and Zosyn, slowly better. 2. Morbidly obese patient. 3. Cough due to atelectasis. PLAN: We will follow. Discussed with the patient. There is no need to test for COVID-19 since we have a lot of diagnosis. In the meantime, we would recommend the patient to stay in droplet isolation. We will follow. MD AAYUSH Graff/SUKHI /[id number]
[2020-02-15] MEDS ORDERED: MELATONIN 5 MG TABLET PO PRN (21:00)
[2020-02-15] MEDS ORDERED: SODIUM CHLORIDE 0.9% 250ML 250 ML ONE (21:56)
[2020-02-16] VITALS: BP 138/73
[2020-02-16] MEDS: ACETAMINOPHEN 325 MG TAB PO PRN (00:01)
[2020-02-16 04:00] VITALS: BP 149/91
[2020-02-16] MEDS: VANCOMYCIN HCL 1.5 GM in SODIUM CHLORIDE 0.9% 250ML 300 ML IV SCH (05:30)
[2020-02-16 05:57] LABS: BASOPHILS % 0.3 % (0.0-1.0); EOSINOPHILS # (AUTO) 0.2 (0.0-0.4); EOSINOPHILS % 2.1 % (0.0-6.0); HEMATOCRIT 37.4 % (38.2-49.6); HEMOGLOBIN 12.4 g/dL (14.0-18.0); LYMPHOCYTES # (AUTO) 1.8 (1.0-3.2); LYMPHOCYTES % 24.1 % (18.0-39.1); MEAN CORPUSCULAR HEMOGLOBIN 30.4 pg (28-32); MEAN CORPUSCULAR HGB CONC 33.2 g/dL (31-35); MEAN CORPUSCULAR VOLUME 91.7 fL (81-99); MONOCYTES # (AUTO) 0.6 (0.2-0.8); MONOCYTES % 8.2 % (4.4-11.3); NEUTROPHILS # (AUTO) 4.9 (2.1-6.9); NEUTROPHILS % 64.8 % (38.7-80.0); PLATELET COUNT 233 x10e3/uL (140-360); RED BLOOD COUNT 4.08 x10e6/uL (4.3-5.7); RED CELL DISTRIBUTION WIDTH 11.8 % (11.7-14.4)
[2020-02-16] MEDS: PIPER-TAZ 3.375 GM 50 ML IV SCH ×2 (06:02→12:25)
[2020-02-16 06:18] LABS: ANION GAP 12.2 mmol/L (8-16); BLOOD UREA NITROGEN 6 mg/dL (7-26); BUN/CREATININE RATIO 9 (6-25); CALCIUM 8.4 mg/dL (8.4-10.2); CARBON DIOXIDE 23 mmol/L (22-29); CHLORIDE 108 mmol/L (98-107); CREATININE, SERUM 0.69 mg/dL (0.72-1.25); EST GLOMERULAR FILTRATION RATE > 60 ML/MIN (60-); GLUCOSE 112 mg/dL (74-118); POTASSIUM 3.2 mmol/L (3.5-5.1); SODIUM 140 mmol/L (136-145)
[2020-02-16 08:00] VITALS: BP 137/80
[2020-02-16] MEDS: LOSARTAN POTASSIUM 100 MG TAB PO SCH (08:25)
[2020-02-16] MEDS: LISINOPRIL 10 MG TAB PO SCH (08:25)
[2020-02-16] MEDS: DOCUSATE SODIUM 100 MG CAP PO SCH (08:25)
[2020-02-16] MEDS: GUAIFENESIN/DEXTROMETHORPHAN LIQD 5 ML UDC NG PRN (08:25)
[2020-02-16 09:13] VITALS: BP 137/80
[2020-02-16 12:00] VITALS: BP 131/78
[2020-02-16] MEDS ORDERED: POTASSIUM CHLORIDE 20 MEQ TAB CR PO SCH (12:00)
[2020-02-16] MEDS ORDERED: DOXYCYCLINE HY100 MG PO (13:17)
[2020-02-16] MEDS ORDERED: PROAIR HFA INH8.5 GM INH (13:18)
--- NOTE | 2020-02-16 14:34 | Diagnostic Imaging Report ---
Chest, 1 view, 02/16/2020. History: Cellulitis of the lower extremity, cough. Comparison: Chest x-ray 02/15/2020. Findings: There is poor inspiration and underpenetration. The cardiomediastinal silhouette and pulmonary vasculature are within normal limits for a portable exam. Patchy bibasilar opacities are unchanged. There are no acute osseous or soft tissue abnormalities. Impression: Bibasilar opacities without change. Signed by: Yrn Simental on 02/16/2020 2:31 PM
--- NOTE | 2020-02-16 18:53 | Discharge Summary ---
ADMISSION DIAGNOSES: 1. Left lower leg cellulitis with sepsis, present on admission. 2. Hypertension. 3. Obstructive sleep apnea. 4. Hyperglycemia with no known history of diabetes. 5. Super morbid obesity with a BMI of 60.5. 6. Anxiety. 7. Depression. DISCHARGE DIAGNOSES: 1. Left lower leg cellulitis with sepsis, present on admission. 2. Hypertension. 3. Obstructive sleep apnea. 4. Hyperglycemia with no known history of diabetes. 5. Super morbid obesity with a BMI of 60.5. 6. Anxiety. 7. Depression. 8. Multifocal pneumonia, present on admission. 9. Rule out urinary tract infection. 10. Rule out bacteremia. 11. Rule out deep venous thrombosis. 12. Rule out congestive heart failure. HISTORY: Hypertension, anxiety, depression, chronic cellulitis of the left lower extremity, obstructive sleep apnea, venous insufficiency CPAP use at home due to sleep apnea. SURGICAL HISTORY: None. FAMILY HISTORY: None. SOCIAL HISTORY: Occasional alcohol use. HOSPITAL COURSE: A 34-year-old male admits with complaints of swelling, redness, and pain of the left lower extremity, that started overnight. Records indicate that he was discharged one night and then readmitted with fever and chills. On admission, left lower extremity venous Doppler was negative for deep venous thrombosis. Echo showed EF of 55%. Blood cultures were negative x72 hours. UA was negative. Temperature on day of admission that up to 101.7. He was initially on vancomycin and Zosyn due to persistent fever. CT of the chest was done, which showed multifocal diffuse bilateral ground-glass and patchy air space opacities representing multifocal pneumonia. Infectious Disease was consulted due to persistent fever. The antibiotics were not changed. The patient requested to be tested for COVID per Infectious Disease recommendation, there is no need as there is another source of infection identified. Per Infectious Disease recommendation, the patient will discharge home with prescription for doxycycline 100 mg b.i.d. x14 days. He was also given an albuterol inhaler p.r.n. He already uses CPAP at home. The patient says he feels ready to discharge. He will follow up with primary care in 1 to [address] Chavez as discussed. The patient understands instructions and agrees to plan. Dictated by Ana Chiu NP MD GINA De Leon/GOGOL /[id number]
== END 2020-02-16 16:40 | disposition home or self-care (01) | DRG 871 ==
LOC: ER 16:01 → ERHOLD 18:16 → MED/SURG3 21:19
PROVIDERS: ADMIT Internal Medicine; ATTEND Internal Medicine
DX: A41.9 Sepsis, unspecified organism (principal); J18.9 Pneumonia, unspecified organism; L03.116 Cellulitis of left lower limb; Z68.44 Body mass index [BMI] 60.0-69.9, adult; J98.11 Atelectasis; I10 Essential (primary) hypertension; E66.01 Morbid (severe) obesity due to excess calories; G47.33 Obstructive sleep apnea (adult) (pediatric); F41.9 Anxiety disorder, unspecified; F32.9 Major depressive disorder, single episode, unspecified; R73.9 Hyperglycemia, unspecified; I87.2 Venous insufficiency (chronic) (peripheral); E87.6 Hypokalemia; E87.8 Other disorders of electrolyte and fluid balance, not elsewhere classified; F98.8 Other specified behavioral and emotional disorders with onset usually occurring in childhood and adolescence
CPT/HCPCS: 36415; 71045; 71250; 80048; 80053; 80061; 80202; 81001; 82550; 82553; 83036; 83735; 83880; 84100; 84443; 84484; 85025; 85610; 85730; 87040; 93005; 93306; 93971; 96360; 96361; 99284; J1650; J1940; J2405; J2543; J3370; J7030; J7050

== ENCOUNTER 2020-09-24 15:02 | Emergency (ER) | payer BC ==
[~2020-09-24] VITALS: Ht 182.9 cm; Wt 181.4 kg
[~2020-09-24 15:02] MED LIST changes: +PROAIR HFA INH8.5 GM INH
[2020-09-24] MEDS ORDERED: DOXYCYCLINE HY100 MG PO (15:26)
--- NOTE | 2020-09-24 15:37 | Emergency Department Note ---
History of Present Illnes History of Present Illness Chief Complaint: Skin Rash or Abscess History of Present Illness This is a 34 year old male Chief Complaint Comment PT CAME IN VIA POV FOR C/O SWELLING TO THE LEFT LEG,PT STATES THAT HE HAS HAD THIS RECURRENT PROBLEM WITH CELLULITIS FOR A FEW MONTHS AND HE RECENTLY FINISHED BACTRIM BUT HAS NOT HELPED. Historian: Patient Arrival Mode: Car Neonatal Pediatric Nurse Required: No Onset (how long ago): week(s) Location: RLE Quality: redness Radiation: Reports non-radiation Severity: mild Onset quality: gradual Duration (how long): week(s) Timing of current episode: constant Progression: worsening Chronicity: new Context: Denies recent illness, Denies recent surgery Relieving factors: none Exacerbating factors: none Associated symptoms: Reports denies other symptoms Treatments prior to arrival: none Past Medical/Family History Physician Review I have reviewed the patient's past medical and family history. Any updates have been documented here. Past Medical History Recent Fever: No Clinical Suspicion of Infectio: No New/Unexplained Change in Ment: No Past Medical History: Hypertension, Diabetes Other Medical History: Lymphedema, chronic cellulitis to LLE, venous insufficiency, sleep apnea, ADD Past Surgical History: None Other Last Tetanus: UTD Review of Systems Review of Systems Constitutional: Reports no symptoms EENTM: Reports no symptoms Cardiovascular: Reports no symptoms Respiratory: Reports no symptoms Gastrointestinal: Reports no symptoms Genitourinary: Reports no symptoms Musculoskeletal: Reports no symptoms Integumentary: Reports as per HPI (Erythema to R leg) Neurological: Reports no symptoms Psychological: Reports no symptoms Endocrine: Reports no symptoms Hematological/Lymphatic: Reports no symptoms Physical Exam Related Data Allergies: Coded Allergies: No Known Allergies (Unverified , 02/06/19) Triage Vital Signs Vital Signs Date Time Temp Pulse Resp B/P (MAP) Pulse Ox O2 Delivery O2 Flow Rate FiO2 09/24/20 15:21 98.9 96 18 204/119 99 Room Air Vital signs reviewed: Yes Physical Exam CONSTITUTIONAL Constitutional: Present well-developed, Present well-nourished, Present morbidly obese HENT HENT: Present normocephalic, Present atraumatic, Present oropharynx clear/moist, Present nose normal HENT L/R: Present left ext ear normal, Present right ext ear normal EYES Eyes: Reports PERRL, Reports conjunctivae normal NECK Neck: Present ROM normal PULMONARY Pulmonary: Present effort normal, Present breath sounds normal CARDIOVASCULAR Cardiovascular: Present regular rhythm, Present heart sounds normal, Present capillary refill normal, Present normal rate GASTROINTESTINAL Abdominal: Present soft, Present nontender, Present bowel sounds normal GENITOURINARY Genitourinary: Present exam deferred SKIN Skin: Present warm, Present dry, Present erythema (RLE. Venous stasis discoloration to BLE(chronic)) MUSCULOSKELETAL Musculoskeletal: Present ROM normal NEUROLOGICAL Neurological: Present alert, Present oriented x 3, Present no gross motor or sensory deficits PSYCHOLOGICAL Psychological: Present mood/affect normal, Present judgement normal Assessment & Plan Medical Decision Making MDM 34-year-old male with history of cellulitis to the lower extremities. Presents emergency department for redness to the right lower extremity. He was recently traveled on Bactrim which he states does not work. He has chronic-appearing venous stasis appearance to bilateral lower extremities. Mild erythema noted to the right lower extremity concerning for cellulitis. We will treat with doxycycline and instructed to follow-up with his primary doctor or emergency department for fevers or any other concerns. Doubt DVT at this time. Patient's agreement plan he is appropriate for discharge. Reassessment Reassessment time: 15:36 Reassessment Well appearing, NAD Assessment & Plan Final Impression: (1) Cellulitis of right leg Depart Disposition: HOME, SELF-CARE Last Vital Signs Date Time Temp Pulse Resp B/P (MAP) Pulse Ox O2 Delivery O2 Flow Rate FiO2 09/24/20 15:21 98.9 96 18 204/119 99 Room Air Home Meds Active Scripts Doxycycline Hyclate (DOXYCYCLINE HYCLATE) 100 Mg Capsule, 100 MG PO BID for Cellulitis for 14 Days, #28 CAP 0 Refills Prov:WILMA MOHAN MD 09/24/20 Albuterol Sulf* (PROAIR HFA INHALER*) 8.5 Gm Inh, 1 INH INH Q6H PRN for SHORTNESS OF BREATH, #1 Prov:HUSEYIN HUERTA NP 02/16/20 Doxycycline Hyclate (DOXYCYCLINE HYCLATE) 100 Mg Capsule, 100 MG PO BID for 14 Days, CAP Prov:HUSEYIN HURETA RATER ASSOCIATE 02/16/20 Reported Medications [Losartan Hct50/12.5] No Conflict Check, MG PO DAILY, #30 02/11/19 WILMA MOHAN MD Sep 24, 2020 15:37
--- OUTSIDE RECORDS SUMMARY | 2020-09-24 16:27 | XMS REPORT | Clinical Summary ---
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 Name Role Phone Asked, No Pcp PCP Unavailable Allergies No Known Active Allergies Medications Not on file Active Problems Not on file Medical History Medical History Date Comments Hypertension Depression Social History Date Tobacco Use Types Packs/Day Years Used Never Smoker Drinks/Week oz/Week Comments Alcohol Use No Sex Assigned at Date Recorded Not on file Last Filed Vital Signs Not on file Plan of Treatment Not on file Results Not on fileafter 09/24/2019 Insurance Type Payer Benefit Subscriber ID Effective Phone Address Plan / Dates Group PPO [employer]ET[employer] A[employer] PPO [id number] OPEN resent CHOICE (Home) [place] [address] Advance Directives For more information, please contact: [phone] Patient Recreation Technician Explanation Type Date Recorded Advance Directives, Living Will and Medical Power of Diagnostic Medical Sonographer
--- OUTSIDE RECORDS SUMMARY | 2020-09-24 16:27 | XMS REPORT | Clinical Summary ---
Author Author [facility] Address Unknown Phone Unavailable Care Team Providers Care Foundry Process Engineer Name Role Phone Sharpdebra PCP Allergies No Known Allergies Medications End Date Status Medication Sig Dispensed Refills Start Date Active clindamycin (CLEOCIN) 150 Take 150 mg 0 MG capsule by mouth 3 (three) times daily. Active ibuprofen (ADVIL,MOTRIN) Take 800 mg 0 800 MG tablet by mouth every 6 (six) hours as needed for Pain. Active Problems Not on file Social History Date Tobacco Use Types Packs/Day Years Used Current Some Day Smoker Drinks/Week oz/Week Comments Alcohol Use Yes Sex Assigned at Date Recorded Not on file Last Filed Vital Signs Not on file Plan of Treatment Not on file Results Not on fileafter 09/24/2019 Insurance Type Payer Benefit Subscriber ID Effective Phone Address Plan / Dates Group HMO/POS [facility] [id number] CARE POS SELECT resent CHOICE
--- OUTSIDE RECORDS SUMMARY | 2020-09-24 16:28 | XMS REPORT | Continuity of Care Document ---
Author Author [facility] Organization [facility] Address [address] [place] [address] Phone Unavailable Care Team Providers Care Spiral Tube Winder Name Role Phone NONSTAFF PCP Unavailable NELSON WHITEHEAD Unavailable GEORGIA HOLBROOK M.D. Attphys Unavailable NELSON WHITEHEAD Unavailable Payers Payer Name Policy Type Policy Number Effective Date Expiration Date [id number] 2016 00:00:00 [facility] [employer] Pos [id number] 2016 00:00:00 [facility] Problems Condition Name Condition Details Condition Category Status Onset Date Resolution Date Last Treatment Date Treating Clinician Comments Source Recurrent cellulitis of lower leg Recurrent cellulitis of lower leg Problem Active [facility] Cellulitis of left lower extremity Cellulitis of left leg Problem Active [facility] Hypertension Hypertension Problem Active [facility] Morbid obesity Morbid obesity Problem Active [facility] Allergies, Adverse Reactions, Alerts This patient has no known allergies or adverse reactions. Social History Social Habit Start Date Stop Date Quantity Comments Source Sex Assigned At [facility] Alcohol intake 2015-03-13 00:00:00 2015-03-13 00:00:00 [facility] Sm[facility] Status Start Date Stop Date Source Never smoker [facility] Current some day smoker 2015-03-13 00:00:00 [facility] Medications Ordered Medication Name Filled Medication Name Start Date Stop Da te Current Medication? Ordering Clinician Indication Dosage Frequency Signature (SIG) Comments Components Source Albuterol Sulfate (Proair Hfa Inhaler*) 8.5 Gm Inh Alb uterol Sulfate (Proair Hfa Inhaler*) 8.5 Gm Inh 2020-02-16 00:00:00 Yes Huseyin Huerta Education Director 1 Every 6 Hours as needed for Shortness Of Breath [facility] Doxycycline Hyclate 100 Mg Capsule Doxycycline Hyclate 100 M g Capsule 2020-02-16 00:00:00 Yes Huseyin Huerta Education Director 100 Twice A Day [facility] clindamycin (CLEOCIN) 150 MG capsule 2015-03-13 11:57:59 Yes 150mg [id number] Take 150 mg by mouth 3 (three) times daily. [facility] ibuprofen (ADVIL,MOTRIN) 800 MG tablet 2015-03-13 11:57:59 Yes 800mg Take 800 mg by mouth every 6 (six) hours as needed for Pain. [facility] Losartan Hct50/12.5 Losartan Hct50/12.5 Yes Daily [facility] Doxycycline Hyclate 100 Mg Capsule, 100 Mg Oral Doxycy das Hyclate 100 Mg Capsule, 100 Mg Oral 2020-02-12 00:00:00 No 100 Twi ce A Day [facility] Vital Signs Vital Name Observation Time Observation Value Comments Source BP Systolic 2019-05-06 10:27:00 148 mm[Hg] Location: JUAN Garcia on: Sitting [facility] BP Diastolic 2019-05-06 10:27:00 99 mm[Hg] Location: JUAN Positi on: Sitting [facility] Height 2019-05-06 10:27:00 74 [in_us] [facility] O2 SAT 2019-05-06 10:27:00 100 % Source: [facility] Heart Rate 2019-05-06 10:27:00 78 /min [facility] Respiration Rate 2019-05-06 10:27:00 18 /min [facility] BP Systolic 2019-04-29 09:48:00 184 mm[Hg] [facility] BP Diastolic 2019-04-29 09:48:00 124 mm[Hg] [facility] Height 2019-04-29 09:48:00 74 [in_us] [facility] Weight 2019-04-29 09:48:00 450 [lb_av] [facility] Body Mass Index Calculated 2019-04-29 09:48:00 57.78 kg/m2 [facility] Heart Rate 2019-04-29 09:48:00 82 /min [facility] Procedures Procedure Date / Time Performed Performing Clinician Sourc e Computed tomography of chest without contrast 2020-02-15 00: 00:00 HUSEYIN HUERTA [facility] [[facility]] CBC (INCLUDES DIFF/PLT) 2019-04-29 00:00:00 [facility] [[facility]] CMP W/EGFR 2019-04-29 00:00:00 [facility] Encounters Start Date/Time End Date/Time Encounter Type Admission Type Att[facility] Care Department Encounter ID Source 2020-02-12 18:16:00 2020-02-16 16:40:00 Discharged Inpatient 1 NELSON WHITEHEAD [facility] [id number] [facility] 2019-07-26 01:25:00 2019-07-26 01:25:00 Emergency [facility] [address] [facility] 2019-05-06 10:00:00 2019-05-06 10:00:00 Appointment; GEORGIA HOLBROOK M.D. OSTROSKY, LUIS, M.D. [facility] Infectious Diseases [facility] [id number] [facility] 2019-04-29 09:00:00 2019-04-29 09:00:00 Appointment; GEORGIA HOLBROOK M.D. OSTROSKY, LUIS, M.D. [facility] Infectious [facility] [id number] [facility] 2019-04-24 11:44:00 2019-04-24 11:44:00 Emergency E [facility] [address] [facility] 2019-02-06 22:01:00 2019-02-11 16:18:00 Discharged Inpatient [facility] [id number] [facility] Results Test Description Test Time Test Comments Results Result Comments Source Blood Culture 2020-02-17 16:52:00 Test Item Blood Culture (test code = 93048512) NO GROWTH AFTER 5 DAYS, FINAL REPORT [facility]2020-02-16 14:29:00 [facility] [address] [address] Patient Name: NELLIE CHOE MR #: [id number] : 1985 Age/Sex: 34/M Req #: [id number] Adm Physician: NELSON WHITEHEAD MD Ordered by: Huseyin Huerta [employer] TRAINER Report #: [id number] Location: MED/SURG3 Room/Bed: 293-1 Procedur e: [id number] DX/CHEST SINGLE (PORTABLE) Exam Date: 02/16/20 Exam Time: 1330 REPORT STAT US: Signed Chest, 1 view, 02/16/2020. History: Cellulitis of the l ower extremity, cough. Comparison: Chest x-ray 02/15/2020. Findings: The re is poor inspiration and underpenetration. The cardiomediastinal silhouette and pulmonary vasculature are within normal limits for a portable exam. Patchy bibasilar opacities are unchanged. There are no acute osseous or soft tissue abnormalities. Impression: Bibasilar opacities without change. Sig loc by: Yrn Simental on 02/16/2020 2:31 PM Dictated By: YRN SIMENTAL MD 143 Transcribed By: HANK CHRISTIANSON on 02/16/20 1431 COPY TO: HUSEYIN HUERTA [employer]AMMAL TRAINER Sodium Level 2020-02-16 06:41:00* Test Item Value Reference Range Interpretation Comments Sodium Level (test code = 2951-2) 140 136-145 [facility] Qklgw5743-82-18 06:41:00* Test Item Value Reference Range Interpretation Comments Potassium Level (test code = 2823-3) 3.2 3.5-5.1 L [facility] Tyler[facility]loride Yyuab1872-74-09 06:41:00* Test Item Value Reference Range Interpretation Comments Chloride Level (test code = 2075-0) 108 98-107 H [facility] TylerCarbon Dioxide Dlsvg4605-73-61 06:41:00* Test Item Value Reference Range Interpretation Comments Carbon Dioxide Level (test code = 2028-9) 23 22-29 [facility] Tyler[facility]ion Wtl6051-81-99 06:41:00* Test Item Value Reference Range Interpretation Comments Anion Gap (test code = 98587-3) 12.2 8-16 [facility] Urea Pxdogqwp1580-83-83 06:41:00* Test Item Value Reference Range Interpretation Comments Blood Urea Nitrogen (test code = 3094-0) 6 7-26 L [facility] TylerCreatinine2020-04-06 06:41:00* Test Item Value Reference Range Interpretation Comments Creatinine (test code = 2160-0) 0.69 0.72-1.25 L [facility] Tyler[facility]UN/Creatinine Tshds1581-44-09 06:41:00* Test Item Value Reference Range Interpretation Comments BUN/Creatinine Ratio (test code = 3097-3) 9 6-25 [facility] Tyler[facility] Glomerular Filtration Rate 2020-02-16 06:41:00* Test Item Value Reference Range Interpretation Comments Estimat Glomerular Filtration Rate (test code = 898253648) > 60 >60 Ranges were taken from the National Kidney Disease Education Program and the [facility] Foundation literature.Reference ranges:60 or greater: Vllmjf30-53 ( for 3 consecutive months): Chronic kidney disease 15 or less: Kidney failureUT Health TylerGlucose Tqhkz8584-11-97 06:41:00* Test Item Value Reference Range Interpretation Comments Glucose Level (test code = NMG2911) 112 74-118 [facility] TylerCalcium Tgflf7947-04-64 06:41:00* Test Item Value Reference Range Interpretation Comments Calcium Level (test code = 82769-0) 8.4 8.4-10.2 [facility] Tyler[facility] Blood Zxvbi4213-20-47 06:20:00* Test Item Value Reference Range Interpretation Comments White Blood Count (test code = 6690-2) 7.56 4.8-10.8 [facility] Tyler[facility] Blood Egfgd3009-52-42 06:20:00* Test Item Value Reference Range Interpretation Comments Red Blood Count (test code = 789-8) 4.08 4.3-5.7 L [facility] TylerHemoglobin2020-04-06 06:20:00* Test Item Value Reference Range Interpretation Comments Hemoglobin (test code = 42655-1) 12.4 14.0-18.0 L [facility] TylerHematocrit2020-04-06 06:20:00* Test Item Value Reference Range Interpretation Comments Hematocrit (test code = 4544-3) 37.4 38.2-49.6 L [facility] TylerMean Corpuscular Dzjivx8937-54-88 06:20:00* Test Item Value Reference Range Interpretation Comments Mean Corpuscular Volume (test code = 787-2) 91.7 81-99 [facility] Tyler[facility] Corpuscular Ykheftrewh2821-11-76 06:20:00* Test Item Value Reference Range Interpretation Comments Mean Corpuscular Hemoglobin (test code = 785-6) 30.4 28-32 [facility] TylerMean Corpuscular Hemoglobin Concent 2020-02-16 06:20:00* Test Item Value Reference Range Interpretation Comments Mean Corpuscular Hemoglobin Concent (test code = 786-4) 33.2 31-35 [facility] Tyler[facility] Cell Distribution Uytkp1489-76-34 06:20:00* Test Item Value Reference Range Interpretation Comments Red Cell Distribution Width (test code = 28980-9) 11.8 11.7 -14.4 [facility] TylerPlatelet Pmbqi0580-15-23 06:20:00* Test Item Value Reference Range Interpretation Comments Platelet Count (test code = 777-3) 233 140-360 [facility] Tyler[facility]utrophils (%) (Auto)2020-02-16 06:20:00 * Test Item Value Reference Range Interpretation Comments Neutrophils (%) (Auto) (test code = 00352-3) 64.8 38.7-80.0 [facility] TylerLymphocytes (%) (Auto)2020-02-16 06:20:00 * Test Item Value Reference Range Interpretation Comments Lymphocytes (%) (Auto) (test code = 736-9) 24.1 18.0-39.1 [facility] Tyler[facility]ocytes (%) (Auto)2020-02-16 06:20:00* Test Item Value Reference Range Interpretation Comments Monocytes (%) (Auto) (test code = 5905-5) 8.2 4.4-11.3 [facility]osinophils (%) (Auto)2020-02-16 06:20:00 * Test Item Value Reference Range Interpretation Comments Eosinophils (%) (Auto) (test code = 713-8) 2.1 0.0-6.0 [facility] TylerBasophils (%) (Auto)2020-02-16 06:20:00* Test Item Value Reference Range Interpretation Comments Basophils (%) (Auto) (test code = 706-2) 0.3 0.0-1.0 [facility] TylerIM GRANULOCYTES %2020-02-16 06:20:00* Test Item Value Reference Range Interpretation Comments IM GRANULOCYTES % (test code = IM GRANULOCYTES %) 0.5 0.0- 1.0 [facility] TylerNeutrophils # (Auto)2020-02-16 06:20:00* Test Item Value Reference Range Interpretation Comments Neutrophils # (Auto) (test code = 751-8) 4.9 2.1-6.9 [facility] TylerLymphocytes # (Auto)2020-02-16 06:20:00* Test Item Value Reference Range Interpretation Comments Lymphocytes # (Auto) (test code = 50304-4) 1.8 1.0-3.2 [facility] TylerMonocytes # (Auto)2020-02-16 06:20:00* Test Item Value Reference Range Interpretation Comments Monocytes # (Auto) (test code = 742-7) 0.6 0.2-0.8 [facility] TylerEosinophils # (Auto)2020-02-16 06:20:00* Test Item Value Reference Range Interpretation Comments Eosinophils # (Auto) (test code = 711-2) 0.2 0.0-0.4 [facility] TylerBasophils # (Auto)2020-02-16 06:20:00* Test Item Value Reference Range Interpretation Comments Basophils # (Auto) (test code = 704-7) 0.0 0.0-0.1 [facility] TylerAbsolute Immature Granulocyte (auto 2020-02-16 06:20:00* Test Item Value Reference Range Interpretation Comments Absolute Immature Granulocyte (auto (bianca t code = Absolute Immature Granulocyte (auto) 0.04 0-0.1 [facility] TylerCT CHEST OI7990-77-01 15:04:[address] [address] Patient Name: NELLIE CHOE MR #: [id number] : 1985 Age/Sex: 34/M [id number] Req #: [id number] Adm Physician: GOLDY WHITEHEAD MD Ordered by: Huseyin Huerta [employer] M[employer]MAL TRAINER Report #: [id number] Location: MED/SURG3 Room/Bed: 293 Procedur e: [id number] CT/CT CHEST WO Exam Date: 02/15/20 Exam Time: 1355 REPORT STATUS: Signed EXAM: CT Chest WITHOUT contrast INDICATION: r/o PNA 20200215 COMPARISON: Same day chest x-ray TECHNIQUE: Chest was scanned ut ilizing a multidetector helical scanner from the lung apex through the level o f the adrenal glands without administration of IV contrast. Absence of intrave nous contrast decreases sensitivity for detection of lymphadenopathy and vascu lar pathology. Coronal and sagittal reformations were obtained. Routine protoc ol was performed. IV CONTRAST: None COMPLICATIONS: None RADI ATION DOSE: Total DLP: 920.92 mGy*cm Estimated effective dose: (D LP x 0.014 x size factor) mSv CTDIvol has been reviewed. It is below the limits set by the Radiation Protocol Committee (RPC). FINDINGS : LINES/ TUBES: None. LUNGS AND AIRWAYS: Multifocal bilateral groundg lass and patchy airspace opacities, most severe in the lower lobes. Airways a re normal. PLEURA: The pleural spaces are clear. HEART AND MEDIASTINUM : The visualized thyroid gland is normal. Subcentimeter right paratracheal ly mph nodes, could be reactive. Otherwise, no mediastinal or axillary lymphadeno yoandy. The heart is normal in size.. There is no pericardial effusion. UPPER ABDOMEN: Hepatic steatosis. BONES: The visualized bony thorax is within normal limits. SOFT TISSUES: Unremarkable. IMPRESSION: Multif ocal diffuse bilateral groundglass and patchy airspace opacities, representing multifocal pneumonia. Signed by: Dr. Albaro Austin MD on 02/15/2020 3:09 PM Dictated By: ALBARO AUSTIN MD 1509 Transcribed By: ASHLEY on 02/15/20 1509 COPY TO: HUSEYIN ROMERO NP Magnesium Czmdn1528-91-54 06:08:00* Test Item Value Reference Range Interpretation Comments Magnesium Level (test code = 97127-0) 1.7 1.3-2.1 [facility] TylerTotal Oyvfnwugd2614-66-25 06:08:00* Test Item Value Reference Range Interpretation Comments Total Bilirubin (test code = 1974-) 1.4 0.2-1.2 H [facility] TylerAspartate Amino Transf (AST/SGOT) 2020-02-15 06:08:00* Test Item Value Reference Range Interpretation Comments Aspartate Amino Transf (AST/SGOT) (test code = Aspartate Amino Transf (AST/SGOT)) 26 5-34 [facility] TylerAlanine Aminotransferase (ALT/SGPT) 2020-02-15 06:08:00* Test Item Value Reference Range Interpretation Comments Alanine Aminotransferase (ALT/SGPT) (test code = 1742-6) 48 0-55 [facility] TylerTotal Hzdujsg9069-84-45 06:08:00* Test Item Value Reference Range Interpretation Comments Total Protein (test code = 2885-2) 6.7 6.5-8.1 [facility] TylerAlbumin2020-04-05 06:08:00* Test Item Value Reference Range Interpretation Comments Albumin (test code = 1751-7) 3.0 3.5-5.0 L [facility] TylerGlobulin2020-04-05 06:08:00* Test Item Value Reference Range Interpretation Comments Globulin (test code = 25535-9) 3.7 2.3-3.5 H [facility] TylerAlbumin/Globulin Cnykd8950-95-39 06:08:00 * Test Item Value Reference Range Interpretation Comments Albumin/Globulin Ratio (test code = 1759-0) 0.8 0.8-2.0 [facility] TylerAlkaline Uvnzfoejwcj9811-62-16 06:08:00* Test Item Value Reference Range Interpretation Comments Alkaline Phosphatase (test code = 6768-6) 69 40-150 [facility] TylerCHE[facility]LE [facility])2020-02-15 00:47:00 [facility] [address] [address] Patient Name: NELLIE CHOE MR #: [id number] : 1985 Age/Sex: 34/M Req #: [id number] Adm Physician: NELSON WHITEHEAD MD Ordered by: TRISTA SUN MARINE MAMMAL TRAINER Report #: [id number] Location: MED/SURG3 Room/Bed: [facility] Procedure: [id number] DX/CHEST SINGLE (PORTABLE) Exam Date: 02/15/20 Exam Time: 14 REPORT STATUS : Signed EXAMINATION: CHEST SINGLE (PORTABLE) COMPARISON: Chest x-r ay 02/12/2020 INDICATION: COUGH 20200215 DISCUSSION: Frontal view of the chest obtained at 0012 hours. HEART AND MEDIASTINUM: Stable cardiomegaly. Increasing vascular congestion. LINES: None. L UNGS: Bibasilar airspace opacities are new suggestive atelectasis or infiltra te. No interstitial edema. PLEURA: No pleural effusion or pneumothorax. BONES AND SOFT TISSUES: No focal osseous lesion. The soft tissues are normal . IMPRESSION: Cardiomegaly and increasing vascular congestion. New bibasilar airspace opacities, either atelectasis or pneumonia. Signed by: Eddie Jimenez MD on 02/15/2020 12:49 AM Dictated By: MICKEY HERNANDEZ MD Transcr ibed By: ASHLEY on 02/15/2048 COPY TO: TRISTA SUN NP Thyroid Stimulating Hormone (TSH)2020-02-14 07:18:00* Test Item Value Reference Range Interpretation Comments Thyroid Stimulating Hormone (TSH) (test code = 12989-1) 0.913 0.350-4.940 [facility] Tyler[facility]osphorus Wdisj1135-24-84 06:50:00* Test Item Value Reference Range Interpretation Comments Phosphorus Level (test code = KET0915) 1.9 2.3-4.7 L [facility] TylerTriglycerides Cuyzp1324-51-76 06:50:00* Test Item Value Reference Range Interpretation Comments Triglycerides Level (test code = 2571-8) 56 0-149 [facility] TylerCholesterol Wqzsv4414-12-79 06:50:00* Test Item Value Reference Range Interpretation Comments Cholesterol Level (test code = 2093-3) 111 0-199 Less than 200 mg/dL Low Pyjs189 - 239 mg/dL Borderline Ibco851 m g/dl and greater High Risk [facility] TylerLDL Qjjnnzhzrmj4223-35-80 06:50:00* Test Item Value Reference Range Interpretation Comments LDL Cholesterol (test code = 2089-1) 61 60-130 [facility] TylerHDL Aimpgmgegun2431-57-14 06:50:00* Test Item Value Reference Range Interpretation Comments HDL Cholesterol (test code = 2085-9) 39 40-60 L [facility] TylerCholesterol/HDL Orydn8531-06-21 06:50:00 * Test Item Value Reference Range Interpretation Comments Cholesterol/HDL Ratio (test code = 9830-1) 2.8 3.9-4.7 L [facility] TylerVancomycin Level Khkbdm5830-30-73 06:31:00* Test Item Value Reference Range Interpretation Comments Vancomycin Level Trough (test code = 4092-3) 2.1 5.0-10.0 L [facility] TylerHemoglobin A1c Jofltpx3589-25-45 06:27:00 * Test Item Value Reference Range Interpretation Comments Hemoglobin A1c Percent (test code = Hemoglobin A1c Percent) 5.6 4.0-7.0 [facility] TylerCreatine Kinase WS1659-55-41 17:22:00* Test Item Value Reference Range Interpretation Comments Creatine Kinase MB (test code = 38428-1) 0.80 0-5.0 [facility] TylerTroponin P6847-66-27 17:22:00* Test Item Value Reference Range Interpretation Comments Troponin I (test code = 25297-7) 0.019 0-0.300 [facility] TylerCreatine Mvaaez9515-34-96 17:12:00* Test Item Value Reference Range Interpretation Comments Creatine Kinase (test code = 2157-6) 106 30-200 [facility]2020-02-12 19:05:[address] [place] [address] Patient Name: NELLIE CHOE MR #: [id number] : 1985 Age/Sex: 34/M Req #: [id number] Adm Physician: NELSON WHITEHEAD MD Ordered by: BELLA BOWIE MD Report #: [id number] Location: [facility] Room/Bed: [address] [address] Procedure : [id number] DX/CHEST SINGLE (PORTABLE) Exam Date: 02/12/20 Exam Time: 1824 REPORT STATU S: Signed EXAMINATION: CHEST SINGLE (PORTABLE) INDICATION: OBESE, SOB 20200212. COMPARISON: None FINDINGS: AP view TUBES and LINES: None. LUNGS: Lungs are not well inflate d. Left basilar opacities likely atelectasis and or pleural effusion. PL EURA: No pleural effusion or pneumothorax. HEART AND MEDIASTINUM: Cardiac size is mildly enlarged. BONES AND SOFT TISSUES: No acute osseous les ion. Soft tissues are unremarkable. UPPER ABDOMEN: No free air under the diaphragm. IMPRESSION: Left basilar opacities likely atelectasis an d or pleural effusion. Signed by: Jerrod Manrique MD on 02/12/2020 7:05 PM Dictated By: JERROD MANRIQUE MD 04 Transcribed By: ASHLEY on 02/12/201904 CO PY TO: BELLA BOWIE MD B-Type Natriuretic Alcptzo2440-06-88 17:25:00 * Test Item Value Reference Range Interpretation Comments B-Type Natriuretic Peptide (test code = 71153-6) 47.5 0-100 [facility] Tyler[facility] EAL1724-58-85 17:21:00* Test Item Value Reference Range Interpretation Comments Urine WBC (test code = 5821-4) NONE 0-5 [facility] Tyler[facility] QJM1840-91-83 17:21:00* Test Item Value Reference Range Interpretation Comments Urine RBC (test code = 58819-4) 0-5 0-5 [facility] Tyler[facility] Krumabpl2707-70-91 17:21:00* Test Item Value Reference Range Interpretation Comments Urine Bacteria (test code = 33953-8) RARE NONE [facility] Tyler[facility] Epithelial Vxgvu8714-50-33 17:21:00 * Test Item Value Reference Range Interpretation Comments Urine Epithelial Cells (test code = 65740-8) FEW NONE [facility] TylerProthrombin Ehpq8538-89-44 17:14:00* Test Item Value Reference Range Interpretation Comments Prothrombin Time (test code = 5902-2) 14.0 11.9-14.5 [facility] TylerProthromb Time International Ratio 2020-02-12 17:14:00* Test Item Value Reference Range Interpretation Comments Prothromb Time International Ratio (test code = 6301-6) 1.02 Oral Anticoagulant Therapy INR Values:1. Low Intensity Therapy 1.5 - 2.02 . Moderate Intensity Therapy 2.0 - 3.03. High Intensity Therapy(1) 2.5 - 3. 54. High Intensity Therapy(2) 3.0 - 4.05. Panic Value INR > 5.0 [facility] TylerActivated Partial Thromboplast Time 2020-02-12 17:14:00* Test Item Value Reference Range Interpretation Comments Activated Partial Thromboplast Time (test code = 09146-5) 34.1 23.8-35.5 [facility] TylerU[facility] Ldaww8769-97-09 17:11:00* Test Item Value Reference Range Interpretation Comments Urine Color (test code = 5778-6) YELLOW YELLOW [facility] TylerU[facility] Euodsth3532-82-47 17:11:00* Test Item Value Reference Range Interpretation Comments Urine Clarity (test code = 14556-2) CLEAR CLEAR [facility] TylerU[facility] Specific Eocfwtl2071-66-15 17:11:00 * Test Item Value Reference Range Interpretation Comments Urine Specific [place] (test code = 5811-5) 1.025 1.010-1.02 5 [facility] Tyler[facility] gD2637-72-71 17:11:00* Test Item Value Reference Range Interpretation Comments Urine pH (test code = 31326-3) 7 5-7 [facility] Tyler[facility] Leukocyte Hrqbgqft7201-24-56 17:11:00* Test Item Value Reference Range Interpretation Comments Urine Leukocyte Esterase (test code = 5799-2) NEGATIVE NEGATIVE [facility] Hvltrpo9542-85-63 17:11:00* Test Item Value Reference Range Interpretation Comments Urine Nitrite (test code = 24327-0) NEGATIVE NEGATIVE [facility] Nvsfbap3032-04-24 17:11:00* Test Item Value Reference Range Interpretation Comments Urine Protein (test code = 5804-0) 1+ NEGATIVE H [facility] TylerU[facility] Glucose (UA)2020-02-12 17:11:00* Test Item Value Reference Range Interpretation Comments Urine Glucose (UA) (test code = 2349-9) NEGATIVE NEGATIVE [facility] Tyler[facility] Dqackgz9820-71-57 17:11:00* Test Item Value Reference Range Interpretation Comments Urine Ketones (test code = 99443-7) TRACE NEGATIVE H [facility] Rscwqbrdcgss5835-04-96 17:11:00* Test Item Value Reference Range Interpretation Comments Urine Urobilinogen (test code = 97002-4) 0.2 0.2-1 [facility] Tyler[facility] Frtdqwplj4287-81-35 17:11:00* Test Item Value Reference Range Interpretation Comments Urine Bilirubin (test code = 1978-6) NEGATIVE NEGATIVE [facility] Tyler[facility] Izpzs1025-48-00 17:11:00* Test Item Value Reference Range Interpretation Comments Urine Blood (test code = 68903-8) TRACE NEGATIVE [facility]] CBC (INCLUDES DIFF/PLT)2019-04-29 10:37:01* Test Item Value Reference Range Interpretation Comments WBC (test code = 6690-2) 5.8 {K/CMM} 3.7-10.4 RBC; Below Low Threshold (test code = 789-8) 4.63 {M/CMM} 4.70-6.10 Hgb (test code = 718-7) 14.5 g/dl 14.0-18.0 Hct; Below Low Threshold (test code = 81479-1) 41.9 % 42.0-54 .0 MCV (test code = 787-2) 90.5 fL 80.0-94.0 MCH; Above High Threshold (test code = 785-6) 31.3 pg 27.0-31. 0 MCHC (test code = 786-4) 34.6 g/dl 32.0-36.0 RDW (test code = 788-0) 13.1 % 11.5-14.5 Platelet (test code = 77488-0) 287 {K/CMM} 133-450 Mean Platelet Volume (test code = 12167-5) 9.3 fL 7.4-10.4 [facility]] Aotnguxcpjup5022-26-11 10:37:01* Test Item Value Reference Range Interpretation Comments Segmented Neutrophils (test code = 15054-7) 56.2 % 45.0-75.0 Monocytes (test code = 73158-9) 6.2 % 2.0-12.0 Lymphocytes (test code = 43115-9) 35.4 % 20.0-40.0 Eosinophils (test code = 44092-0) 1.7 % 0.0-4.0 Basophils (test code = 706-2) 0.5 % 0.0-1.0 Segs-Bands # (test code = 18204-0) 3.3 {K/CMM} 1.5-8.1 Lymphocytes # (test code = 22610-7) 2.1 {K/CMM} 1.0-5.5 Monocytes # (test code = 31905-0) 0.4 {K/CMM} 0.0-0.8 Eosinophils # (test code = 87157-8) 0.1 {K/CMM} 0.0-0.5 [facility]] CMP W/FKLL3863-67-33 10:37:01* Test Item Value Reference Range Interpretation Comments Sodium Level (test code = 2951-2) 143 {mEq/l} 135-145 Potassium Level (test code = 2823-3) 3.8 {mEq/l} 3.5-5.1 Chloride Level (test code = 2075-0) 109 {mEq/l} 95-109 Carbon Dioxide (test code = 2027-9) 26 {mEq/l} 24-32 AGAP (test code = 89509-7) 11.8 {mEq/l} 10.0-20.0 Glucose Lvl; Above High Threshold (test code = 2345-7) 111 mg/dl 70-99 Adult reference range values reflect the clinical guidelinesof the [place] [employer]. Creatinine Lvl (test code = 2160-0) 0.80 mg/dl 0.50-1.40 Blood Urea Nitrogen (test code = 3094-0) 9 mg/dl 7-22 BUN/Creatinine Ratio (test code = 3097-3) 11 6-25 Total Protein (test code = 2885-2) 7.3 g/dl 6.4-8.4 Albumin Lvl (test code = 1751-7) 3.6 g/dl 3.5-5.0 Globulin (test code = 91100-1) 3.7 g/dl 2.7-4.2 A/G Ratio (test code = 1759-0) 1.0 0.7-1.6 Calcium Level Total (test code = 30489-3) 9.1 mg/dl 8.5-10.5 ALT; Above High Threshold (test code = 1743-4) 66 u/l 0-65 AST (test code = 71004-4) 32 u/l 0-37 Alk Phos (test code = 1783-0) 93 u/l 39-136 Bili Total (test code = 1974-2) 0.7 mg/dl 0.2-1.3 eGFR (test code = 39701-3) 119 {ML/MIN/1.7} The eGFR is calculated using the CKD-EPI [...] eGFR shouldbe multiplied by the estimated BMI. [facility] Zfrbeq4502-55-82 07:41:00* Test Item Value Reference Range Interpretation Comments Vancomycin Level Trough (test code = 4092-3) 10.5 5.0-10.0 HH Results repeated and called to INNA ESPINOZA at 0741 on 02/10/19 by Ginger chau Read [facility] and verified.[facility] 20:48:00* Test Item Value Reference Range Interpretation Comments Blood Culture (test code = 25443958) NO GROWTH AFTER 72 HOURS [facility] TylerDifferential Total Cells Counted 2019-02-08 07:44:00* Test Item Value Reference Range Interpretation Comments Differential Total Cells Counted (test code = Differstanley tial Total Cells Counted) 100 [facility] TylerNeutrophils % (Manual)2019-02-08 07:44:00 * Test Item Value Reference Range Interpretation Comments Neutrophils % (Manual) (test code = 20565-6) 61 40-74 [facility] TylerLymphocytes % (Manual)2019-02-08 07:44:00 * Test Item Value Reference Range Interpretation Comments Lymphocytes % (Manual) (test code = 737-7) 33 19-48 [facility] TylerMonocytes % (Manual)2019-02-08 07:44:00* Test Item Value Reference Range Interpretation Comments Monocytes % (Manual) (test code = 744-3) 4 3.4-9.0 [facility] TylerEosinophils % (Manual)2019-02-08 07:44:00 * Test Item Value Reference Range Interpretation Comments Eosinophils % (Manual) (test code = 714-6) 2 0-7 [facility] TylerPlatelet Fjeltmqz1003-76-70 07:44:00* Test Item Value Reference Range Interpretation Comments Platelet Estimate (test code = 47553-7) ADEQUATE [facility] TylerPlatelet Morphology Sglcbcz8329-42-22 07:44:00* Test Item Value Reference Range Interpretation Comments Platelet Morphology Comment (test code = 63118-3) NORMAL [facility] TylerRed Cell Morphology Iyzzhvx8564-50-41 07:44:00* Test Item Value Reference Range Interpretation Comments Red Cell Morphology Comment (test code = 6742-1) [facility] V[facility]l3363[facility]83 05:58:00* Test Item Value Reference Range Interpretation Comments Sodium Level (test code = 2951-2) 138 136-145 [facility] TylerPotassium Giida1828-84-94 05:58:00* Test Item Value Reference Range Interpretation Comments Potassium Level (test code = 2823-3) 3.3 3.5-5.1 L [facility] TylerChloride Sdzmq5111-38-36 05:58:00* Test Item Value Reference Range Interpretation Comments Chloride Level (test code = 2075-0) 109 98-107 H [facility] TylerCarbon Dioxide Byhxl0971-73-66 05:58:00* Test Item Value Reference Range Interpretation Comments Carbon Dioxide Level (test code = 2028-9) 23 22-29 [facility] TylerAnion Ryc4926-87-25 05:58:00* Test Item Value Reference Range Interpretation Comments Anion Gap (test code = 27199-0) 9.3 8-16 [facility] TylerBlood Urea Emzztirp8011-56-44 05:58:00* Test Item Value Reference Range Interpretation Comments Blood Urea Nitrogen (test code = 3094-0) 7 7-26 [facility] TylerCreatinine2019-03-30 05:58:00* Test Item Value Reference Range Interpretation Comments Creatinine (test code = 2160-0) 0.73 0.72-1.25 [facility] TylerBUN/Creatinine Tgmym2010-76-28 05:58:00* Test Item Value Reference Range Interpretation Comments BUN/Creatinine Ratio (test code = 3097-3) 10 6-25 [facility] TylerEstimat Glomerular Filtration Rate 2019-02-08 05:58:00* Test Item Value Reference Range Interpretation Comments Estimat Glomerular Filtration Rate (test code = 073618098) > 60 >60 Ranges were taken from the National Kidney Disease Education Program and the [facility] Kidney Foundation literature.Reference ranges:60 or greater: Esiwdg02-27 ( for 3 consecutive months): Chronic kidney disease 15 or less: Kidney failureUT Health TylerGlucose Ivamp6230-42-77 05:58:00* Test Item Value Reference Range Interpretation Comments Glucose Level (test code = OQS7127) 102 74-118 [facility] TylerCalcium Tezzl2423-00-15 05:58:00* Test Item Value Reference Range Interpretation Comments Calcium Level (test code = 26119-0) 8.4 8.4-10.2 [facility] TylerWhite Blood Lczcv7162-06-29 05:42:00* Test Item Value Reference Range Interpretation Comments White Blood Count (test code = 6690-2) 9.58 4.8-10.8 [facility] TylerRed Blood Nsbgs5707-77-95 05:42:00* Test Item Value Reference Range Interpretation Comments Red Blood Count (test code = 789-8) 3.98 4.3-5.7 L [facility] TylerHemoglobin2019-03-30 05:42:00* Test Item Value Reference Range Interpretation Comments Hemoglobin (test code = 89876-5) 12.1 14.0-18.0 L [facility] TylerHematocrit2019-03-30 05:42:00* Test Item Value Reference Range Interpretation Comments Hematocrit (test code = 4544-3) 36.4 38.2-49.6 L [facility] TylerMean Corpuscular Axcyry4771-71-31 05:42:00* Test Item Value Reference Range Interpretation Comments Mean Corpuscular Volume (test code = 787-2) 91.5 81-99 [facility] TylerMean Corpuscular Hxyucvcbao2344-07-90 05:42:00* Test Item Value Reference Range Interpretation Comments Mean Corpuscular Hemoglobin (test code = 785-6) 30.4 28-32 [facility] TylerMean Corpuscular Hemoglobin Concent 2019-02-08 05:42:00* Test Item Value Reference Range Interpretation Comments Mean Corpuscular Hemoglobin Concent (test code = 786-4) 33.2 31-35 [facility] TylerRed Cell Distribution Ayymv1333-41-61 05:42:00* Test Item Value Reference Range Interpretation Comments Red Cell Distribution Width (test code = 95177-8) 12.5 11.7 -14.4 [facility] TylerPlatelet Fawgw3050-26-30 05:42:00* Test Item Value Reference Range Interpretation Comments Platelet Count (test code = 777-3) 173 140-360 [facility] Tjlqnneym8196-48-08 05:46:00* Test Item Value Reference Range Interpretation Comments Total Bilirubin (test code = 1975-2) 1.1 0.2-1.2 [facility] TylerAspartate Amino Transf (AST/SGOT) 2019-02-07 05:46:00* Test Item Value Reference Range Interpretation Comments Aspartate Amino Transf (AST/SGOT) (test code = Aspartate Amino Transf (AST/SGOT)) 19 5-34 [facility] TylerAlanine Aminotransferase (ALT/SGPT) 2019-02-07 05:46:00* Test Item Value Reference Range Interpretation Comments Alanine Aminotransferase (ALT/SGPT) (test code = 1742-6) 35 0-55 [facility] TylerTotal Bwomluo2387-01-99 05:46:00* Test Item Value Reference Range Interpretation Comments Total Protein (test code = 2885-2) 6.2 6.5-8.1 L [facility] TylerAlbumin2019-03-29 05:46:00* Test Item Value Reference Range Interpretation Comments Albumin (test code = 1751-7) 2.8 3.5-5.0 L [facility] TylerGlobulin2019-03-29 05:46:00* Test Item Value Reference Range Interpretation Comments Globulin (test code = 79919-3) 3.4 2.3-3.5 [facility] TylerAlbumin/Globulin Pajdj1753-32-90 05:46:00 * Test Item Value Reference Range Interpretation Comments Albumin/Globulin Ratio (test code = 1759-0) 0.8 0.8-2.0 [facility] TylerAlkaline Vjppbnjutao7864-29-94 05:46:00* Test Item Value Reference Range Interpretation Comments Alkaline Phosphatase (test code = 6768-6) 60 40-150 [facility] TylerNeutrophils (%) (Auto)2019-02-07 05:11:00 * Test Item Value Reference Range Interpretation Comments Neutrophils (%) (Auto) (test code = 09783-0) 78.0 38.7-80.0 [facility] TylerLymphocytes (%) (Auto)2019-02-07 05:11:00 * Test Item Value Reference Range Interpretation Comments Lymphocytes (%) (Auto) (test code = 736-9) 13.5 18.0-39.1 L [facility] TylerMonocytes (%) (Auto)2019-02-07 05:11:00* Test Item Value Reference Range Interpretation Comments Monocytes (%) (Auto) (test code = 5905-5) 7.3 4.4-11.3 [facility] TylerEosinophils (%) (Auto)2019-02-07 05:11:00 * Test Item Value Reference Range Interpretation Comments Eosinophils (%) (Auto) (test code = 713-8) 0.6 0.0-6.0 [facility] TylerBasophils (%) (Auto)2019-02-07 05:11:00* Test Item Value Reference Range Interpretation Comments Basophils (%) (Auto) (test code = 706-2) 0.2 0.0-1.0 [facility] TylerIM GRANULOCYTES %2019-02-07 05:11:00* Test Item Value Reference Range Interpretation Comments IM GRANULOCYTES % (test code = IM GRANULOCYTES %) 0.4 0.0- 1.0 [facility] TylerNeutrophils # (Auto)2019-02-07 05:11:00* Test Item Value Reference Range Interpretation Comments Neutrophils # (Auto) (test code = 751-8) 9.5 2.1-6.9 H [facility] TylerLymphocytes # (Auto)2019-02-07 05:11:00* Test Item Value Reference Range Interpretation Comments Lymphocytes # (Auto) (test code = 82655-0) 1.7 1.0-3.2 [facility] TylerMonocytes # (Auto)2019-02-07 05:11:00* Test Item Value Reference Range Interpretation Comments Monocytes # (Auto) (test code = 742-7) 0.9 0.2-0.8 H [facility] TylerEosinophils # (Auto)2019-02-07 05:11:00* Test Item Value Reference Range Interpretation Comments Eosinophils # (Auto) (test code = 711-2) 0.1 0.0-0.4 [facility] TylerBasophils # (Auto)2019-02-07 05:11:00* Test Item Value Reference Range Interpretation Comments Basophils # (Auto) (test code = 704-7) 0.0 0.0-0.1 [facility] TylerAbsolute Immature Granulocyte (auto 2019-02-07 05:11:00* Test Item Value Reference Range Interpretation Comments Absolute Immature Granulocyte (auto (bianca t code = Absolute Immature Granulocyte (auto) 0.05 0-0.1 [facility]
== END 2020-09-24 16:44 | disposition home or self-care (01) ==
LOC: ER 15:15
DX: L03.115 Cellulitis of right lower limb (principal); M79.89 Other specified soft tissue disorders; I10 Essential (primary) hypertension; E11.9 Type 2 diabetes mellitus without complications; G47.30 Sleep apnea, unspecified; F98.8 Other specified behavioral and emotional disorders with onset usually occurring in childhood and adolescence
CPT/HCPCS: 99282

== ENCOUNTER 2021-04-04 19:02 | Emergency (ER) | payer BC ==
[~2021-04-04] VITALS: Ht 188 cm; Wt 181.4 kg
[2021-04-04] MEDS ORDERED: VANCOMYCIN 1GM/NS 250 ML 250 ML IV STA (20:36)
[2021-04-04 20:56] LABS: BASOPHILS % 0.2 % (0.0-1.0); EOSINOPHILS # (AUTO) 0.1 (0.0-0.4); EOSINOPHILS % 0.8 % (0.0-6.0); LYMPHOCYTES # (AUTO) 1.9 (1.0-3.2); LYMPHOCYTES % 17.6 % (18.0-39.1); MEAN CORPUSCULAR HEMOGLOBIN 30.6 pg (28-32); MEAN CORPUSCULAR HGB CONC 33.3 g/dL (31-35); MEAN CORPUSCULAR VOLUME 91.7 fL (81-99); MONOCYTES # (AUTO) 0.8 (0.2-0.8); MONOCYTES % 7.5 % (4.4-11.3); NEUTROPHILS # (AUTO) 8.1 (2.1-6.9); NEUTROPHILS % 73.4 % (38.7-80.0); PLATELET COUNT 253 x10e3/uL (140-360); RED BLOOD COUNT 4.58 x10e6/uL (4.3-5.7); RED CELL DISTRIBUTION WIDTH 12.4 % (11.7-14.4)
[2021-04-04 21:07] LABS: ALANINE AMINOTRANSFERASE 61 IU/L (0-55); ALBUMIN 3.5 g/dL (3.5-5.0); ALBUMIN/GLOBULIN RATIO 0.9 (0.8-2.0); ALKALINE PHOSPHATASE 81 IU/L (40-150); ANION GAP 14.5 mmol/L (8-16); BLOOD UREA NITROGEN 16 mg/dL (7-26); BUN/CREATININE RATIO 15 (6-25); CALCIUM 8.9 mg/dL (8.4-10.2); CARBON DIOXIDE 26 mmol/L (22-29); CHLORIDE 102 mmol/L (98-107); EST GLOMERULAR FILTRATION RATE > 60 ML/MIN (60-); GLUCOSE 123 mg/dL (74-118); POTASSIUM 3.5 mmol/L (3.5-5.1); SODIUM 139 mmol/L (136-145)
[2021-04-04] MEDS ORDERED: CEPHALEXIN500 MG PO (21:41)
[2021-04-04] MEDS ORDERED: BACTRIM DS TAB1 EACH PO (21:41)
[2021-04-04] MEDS ORDERED: CEFEPIME HCL 1 GM VIAL IV SCH (22:00)
[2021-04-04] MEDS ORDERED: HYDRALAZINE HCL 20 MG/ML VIAL IV STA (22:27)
[2021-04-04] MEDS ORDERED: ACETAMINOPHEN 325 MG TAB PO ONE (23:15)
[2021-04-05] MEDS ORDERED: SODIUM CHLORIDE 0.9% 1000ML 1,000 ML ONE (00:42)
[2021-04-05] MEDS ORDERED: SODIUM CHLORIDE 0.9% 1000ML 1,000 ML IV ONE ×2 (00:45→01:30)
[2021-04-05 04:58] VITALS: BP 160/102
== END 2021-04-05 04:50 | disposition other institution (70) ==
LOC: ER 19:05
DX: L03.116 Cellulitis of left lower limb (principal); E66.01 Morbid (severe) obesity due to excess calories; I10 Essential (primary) hypertension; E11.65 Type 2 diabetes mellitus with hyperglycemia; G47.30 Sleep apnea, unspecified; F98.8 Other specified behavioral and emotional disorders with onset usually occurring in childhood and adolescence; Z20.822 Contact with and (suspected) exposure to COVID-19
CPT/HCPCS: 36415; 80053; 83605; 85025; 87040; 99284; J0360; J0692; J3370; J7030; U0002